=== PATIENT | female | born 1965 | race Caucasian/White ===

== ENCOUNTER 2020-11-02 13:54 | Outpatient (CLI) | payer BC, SELFPAY ==
--- NOTE | ~2020-11-02 | XR_ITS ---
EXAMINATION: XR chest 2V 11/02/2020 14:37 INDICATION: Dyspnea. Recent heart attack. PROCEDURE: 2 view chest COMPARISON: No prior studies for comparison. FINDINGS: There is left lower lobe atelectasis. The cardiomediastinal silhouette is enlarged. There a re no pleural effusions. There is no pneumothorax suspected. IMPRESSION: 1: Left lower lobe atelectasis. 2: Cardiomegaly. Reviewed, dictated and finalized at location B.
[2020-11-02 14:23] LABS: Basophils Absolute Auto 0.12 K/mm3 (0.00-0.10); Basophils Percent Auto 1.4 % (0.0-1.0); Eosinophils Absolute Auto 0.22 K/mm3 (0.02-0.50); Eosinophils Percent Auto 2.5 % (1.0-6.0); Hematocrit 27.3 % (35.0-49.0); Immature Granulocyte Absolute 0.23 K/mm3 (0.00-0.00); Immature Granulocyte Percent A 2.6 % (0.0-0.0); Lymphocytes Absolute Auto 1.61 K/mm3 (1.10-4.50); Lymphocytes Percent Auto 18.4 % (18.0-42.0); Mean Corpuscular Hemoglobin 29.1 pg (27.0-31.0); Mean Corpuscular Volume 88.3 fL (78.0-102.0); Mean Platelet Volume 9.5 fl (9.2-11.8); Monocytes Absolute Auto 0.78 K/mm3 (0.10-0.90); Monocytes Percent Auto 8.9 % (2.0-11.0); Neutrophils Absolute Auto 5.8 K/mm3 (1.7-7.2); Neutrophils Percent Auto 66.2 % (50.0-70.0); Platelet Count Result 356 K/mm3 (150-420); Red Blood Count 3.09 M/mm3 (4.20-5.40); Red Cell Distribution Width 13.7 % (11.6-14.4); White Blood Count 8.8 K/mm3 (4.8-10.8)
[2020-11-02 14:47] LABS: Alanine Aminotransferase 117 U/L (14-59); Albumin Level 2.9 g/dL (3.4-5.0); Alkaline Phosphatase 82 U/L (46-116); Anion Gap 15 mmol/L (8-16); Aspartate Amino Transferase 53 U/L (15-37); Bilirubin,Total 0.4 mg/dL (0.00-1.00); Blood Urea Nitrogen 39 mg/dL (7-18); Calcium 8.8 mg/dL (8.5-10.1); Carbon Dioxide 19 mmol/L (21-32); Chloride 105 mmol/L (98-108); Estimated Glomerular Filt Rate 34; Glucose 159 mg/dL (70-99); NT Pro B Type Natriuretic Pept 5725 pg/mL (0-125); Osmolality Calculated 300 mOsm/kg (285-295); Potassium 4.2 mmol/L (3.5-5.1); Sodium 139 mmol/L (136-145); Total Protein 6.9 g/dL (6.4-8.2)
== END 2020-11-02 13:55 | disposition home or self-care (01) ==
LOC: CHSIMG 14:01
PROVIDERS: PCP Internal Medicine; Visit Provider Internal Medicine
DX: I50.9 Heart failure, unspecified (principal); R06.00 Dyspnea, unspecified
CPT/HCPCS: 36415; 71046; 80053; 83880; 85025

== ENCOUNTER 2021-11-17 14:24 | Outpatient (CLI) | payer BC, SELFPAY ==
--- NOTE | ~2021-11-17 | MM_ITS ---
EXAMINATION: MM screening jenn BI w zachariah HISTORY: Screening TECHNIQUE: Craniocaudal and mediolateral oblique 3-D tomosynthesis images were obtained and synthetic 2-D images were generated. CAD analysis was submitted and interpreted. COMPARISON: Comparison to multiple prior studies sequentially, with oldest reviewed study dated 03/14. BREAST PARENCHYMAL COMPOSITION: The breasts are almost entirely fatty. FINDINGS: There is no evidence of suspicious mass, calcification, or architectural distortion to sugg est malignancy in either breast. There has been no suspicious interval change. IMPRESSION: 1. No mammographic evidence of malignancy. 2. Recommend routine screening mammography in one year. BI-RADS Category 1: Negative Reviewed, dictated and finalized at location A.
== END 2021-11-17 14:25 | disposition home or self-care (01) ==
LOC: CHSIMG 14:25
PROVIDERS: PCP Internal Medicine; Visit Provider Internal Medicine
DX: Z12.31 Encounter for screening mammogram for malignant neoplasm of breast (principal)
CPT/HCPCS: 77063; 77067

== ENCOUNTER 2023-05-31 07:26 | Outpatient (CLI) | payer OTHER, SELFPAY ==
--- NOTE | ~2023-05-31 | MM_ITS ---
EXAMINATION: MM screening jenn BI w zachariah HISTORY: Screening TECHNIQUE: Craniocaudal and mediolateral oblique 3-D tomosynthesis images were obtained and synthetic 2-D images were generated. CAD analysis was submitted and interpreted. COMPARISON: Comparison to multiple prior studies sequentially, with oldest reviewed study dated 03/14. BREAST PARENCHYMAL COMPOSITION: There are scattered areas of fibroglandular density. FINDINGS: There is no evidence of suspicious mass, calcification, or architectural distortion to sugg est malignancy in either breast. There has been no suspicious interval change. IMPRESSION: 1. No mammographic evidence of malignancy. 2. Recommend routine screening mammography in one year. BI-RADS Category 1: Negative Reviewed, dictated and finalized at location A. SCOPY REGISTERED NURSE
== END 2023-05-31 07:27 | disposition home or self-care (01) ==
LOC: CHSIMG 07:27
PROVIDERS: PCP Internal Medicine; Visit Provider Internal Medicine
DX: Z12.31 Encounter for screening mammogram for malignant neoplasm of breast (principal)
CPT/HCPCS: 77063; 77067

== ENCOUNTER 2024-07-20 07:24 | Outpatient (CLI) | payer OTHER, SELFPAY ==
--- NOTE | ~2024-07-20 | XR_ITS ---
XR hip RT min 2V Ordering provider: Hossein Hoffman MD History: . RT hip pain X 2-3 months, abducting pain . Comparison: None. FINDINGS: BONES: No acute fracture or dislocation. HIP JOINT SPACES: Severe osteoarthritic changes of the right hip. SACROILIAC JOINT SPACES/LUMBAR SPINE: The sacroiliac joint spaces are normal. Mild degenerative jiménez es of the visualized lower lumbar spine. PUBIC SYMPHYSIS: Normal. SOFT TISSUES: Calcified fibroid. IMPRESSION: No acute osseous abnormality pelvis and right hip. Severe osteoarthritic changes of the right hip. Reviewed, dictated and finalized at location A.
--- NOTE | ~2024-07-20 | MM_ITS ---
EXAMINATION: MM screening jenn BI w zachariah HISTORY: Screening mammogram TECHNIQUE: Craniocaudal and mediolateral oblique 3-D tomosynthesis images were obtained and synthetic 2-D images were generated. CAD analysis was submitted and interpreted. COMPARISON: 05/31/2023, 11/29/2021, 04/07/2019 BREAST PARENCHYMAL COMPOSITION:Not Dense. The breasts are almost entirely fatty FINDINGS: No suspicious mass, calcification, or architectural distortion are identified in either alem ast to suggest malignancy. There has been no suspicious interval change. IMPRESSION: No mammographic evidence of malignancy. Recommend routine screening mammography in one year. BI-RADS Category 1: Negative Reviewed, dictated and finalized at location .
--- NOTE | ~2024-07-20 | DEXA_ITS ---
Bone Density Report Name: LOUISE SHAFER Age: 59 Sex: Female Ethnicity: White Date of : 1965 Indication: postmenopausal; screening for osteoporosis; parental hip fracture; height loss; Referring Provider: Hossein Hoffman Study: Bone densitometry was performed. Exam Date: July 20, 2024 Accession number: [id number] Bone Density: Region BMD T-score Z-score Classification AP Spine(L1, L2, L3) 1.135 1.1 2.5 Normal Femoral Neck (Left) 0.902 0.5 1.8 Normal Total Hip (Left) 0.992 0.4 1.4 Normal Femoral Neck (Right) 0.786 -0.6 0.7 Normal Total Hip (Right) 0.919 -0.2 0.8 Normal Femoral Neck Mean 0.844 0.0 1.3 Normal Total Hip Mean 0.956 0.1 1.1 Normal World Health Organization criteria for BMD impression classify patients as: Normal (T-score at or above -1.0), Osteopenia (T-score between -1.0 and -2.5), or Osteoporosis (T-score at or below -2.5). 10-year Fracture Risk: FRAX not reported because: All T-scores for Spine Total, Hip Total, Femoral Neck at or above -1.0 Previous Exams: Region Exam Age BMD T-score BMD Change BMD Change Date g/cm2 vs Baseline vs Previous AP Spine (L1-L3) 07/20/2024 59 1.135 1.1 -0.108 (-8.7%) -0.108 (-8.7%) 04/07/2019 54 1.243 2.0 Total Hip(Left) 07/20/2024 59 0.992 0.4 -0.010 (-1.0%) -0.010 (-1.0%) 04/07/2019 54 1.002 0.5 Total Hip(Right) 07/20/2024 59 0.919 -0.2 -0.026 (-2.7%) -0.026 (-2.7%) 04/07/2019 54 0.945 0.0 *Denotes significance at 95% confidence level, LSC for AP Spine = 0.022 g/cm2, LSC for Total Hip = 0.027 g/cm2 # Denotes dissimilar scan types or analysis methods Clinical Information Provided by Patient: Parent has had a hip fracture Has used the following medications: multi Patient maximum height was 69.5 Menopause Age: 54 No regular weight bearing exercise Drinks caffeinated beverages Onset of menses at age 12 Number of children 0 Impression: The patient has normal bone mass. The patient has risk factors, including: parental hip fracture. No significant bone loss was observed. Discussion: BONE DENSITY IS ABOVE THE MINIMUM DESIRABLE LEVEL AT ALL SKELETAL SITES TESTED. This patient?s bone mineral density is above the minimum desirable level (T-score -1.0 or better) at all sites measured. The patient should follow a healthful lifestyle (good nutrition with adequate calcium and vitamin D, and appropriate weight-bearing exercise). Follow-Up: Consider repeating this study in 5 years or sooner if there is some new clinical indication. Reported by: CARLA on 07/20/2024 8:07:00 AM. Reviewed, dictated and finalized at location A.
--- OUTSIDE RECORDS SUMMARY | 2024-07-20 07:32 | XMS_ITS | Encounter Summary ---
Author Organization [facility] Address [facility] [place] [address] Care Team Providers Care Air Twister Winder Name Role Phone Hossein Hoffman MD Primary Care Provider [phone] Joselyn Frazier MD Unavailable Jack Navarro MD Unavailable [phone] Encounter Details Date Type Department Care Team (Late st Contact Info) Description 10/18/2021 Spayee Message [facility] [address] Joselyn Frazier MD [address] [place] [address] Dentist Social History Tobacco Use Types Packs/Day Years Used Date Smoking Tobacco: Former Cigarettes 0.5 20 1 985 - 2005 Smokeless Tobacco: Never Alcohol Use Standard Drinks/Week Comments Yes 0 (1 standard drink = 0.6 oz pur e alcohol) rarely Comments No Sex and Gender Information Value Date Recorded Sex Assigned at Not on file Legal Sex Female 9:31 PM AUTOMOBILE RADIO REPAIRER Gender Identity Female 05/24/2021 9:30 AM AUTOMOBILE RADIO REPAIRER Sexual Orientation Straight 05/24/2021 9: 30 AM AUTOMOBILE RADIO REPAIRER documented as of this encounter Functional Status * RETIRED Are you deaf or do you have serious difficulty hearing Answer Date of Assessment Author Status No 10/24/2020 1:53 AM CDT Activ e * RETIRED Are you blind or do you have serious difficulty seeing, even when wearing glasses? Answer Date of Assessment Author Status No 10/24/2020 1:53 AM CDT Activ e * Do you have serious difficulty walking or climbing stairs? Answer Date of Assessment Author Status No 10/24/2020 1:53 AM CDT Samara Lockwood RN Active * Do you have difficulty dressing or bathing? Answer Date of Assessment Author Status No 10/24/2020 1:53 AM CDT Samara Lockwood RN Active * Because of a physical, mental, or emotional condition, do you have difficulty doing errands alone such as visiting a doctor's office or shopping? Answer Date of Assessment Author Status No 10/24/2020 1:53 AM CDT Samara Lockwood RN Active documented as of this encounter Mental Status * Because of a physical, mental, or emotional condition, do you have serious difficulty concentrating, remembering, or making decisions? Answer Entry Date Author Status No 10/24/2020 1:53 AM ARMAANT Samara Lockwood RN Active documented in this encounter Plan of Treatment Upcoming Encounters Date Type Department Care Team (Late st Contact Info) Description 10/22/2024 1:15 AM CDT Allied Health/Nurse Visit Emelia johnson 6[address] [place] [address] Jack Navarro MD 9 [place] [address] 03/26/2025 8:00 AM AUTOMOBILE RADIO REPAIRER Appointment [facility] Non Invasive Cardiology - [place] [facility] [place] [address] [place] [address] Joselyn Frazier MD 619 [place] [address] 03/30/2025 9:15 AM AUTOMOBILE RADIO REPAIRER Office Visit Emelia johnson 619 [place] [address] Joselyn Frazier MD [address]19 [place] [address] 04/06/2025 2:00 PM AUTOMOBILE RADIO REPAIRER Office Visit Emelia johnson [address] [place] [address] Jack Navarro MD [address] [place], [place] [address] 04/06/2025 2:00 PM AUTOMOBILE RADIO REPAIRER Allied Health/Nurse Visit [facility] [address] [place] [phone] Jack Navarro MD 6[address] [place] [address] documented as of this encounter Visit Diagnoses Not on filedocumented in this encounter Care Teams Air Twister Winder Relationship Specialty Start Date End Date Hossein Hoffman MD 4 [place] [address] PCP - General INTERNAL MEDICINE 10/11/20 Joselyn Frazier MD 9 [place] [address] Consulting Physician CARDIOVASCULAR DISEASE 02/17/21 Jack Navarro MD [address] [place] [address] Consulting Physician CLINICAL CARDIAC ELECTROPHYSIOLOGY 11/21/22 documented as of this encounter
--- OUTSIDE RECORDS SUMMARY | 2024-07-20 07:32 | XMS_ITS | Encounter Summary ---
Author Organization [facility] Address [facility] [place] [address] Care Team Providers Care Ell Teacher Name Role Phone Hossein Hoffman MD Primary Care Provider [phone] Joselyn Frazier MD Unavailable Jack Navarro MD Unavailable [phone] Encounter Details Date Type Department Care Team ([facility] st Contact Info) Description 11/06/2021 CustomMade Message [facility] [address] Joselyn Frazier MD [address] [place] [address] colonoscopy Social History Tobacco Use Types Packs/Day Years Used Date Smoking Tobacco: Former Cigarettes 0.5 20 1 985 - 2005 Smokeless Tobacco: Never Alcohol Use Standard Drinks/Week Comments Yes 0 (1 standard drink = 0.6 oz pur e alcohol) rarely Comments No Sex and Gender Information Value Date Recorded Sex Assigned at Not on file Legal Sex Female 9:31 PM TANNER ROTARY DRUM CONTINUOUS PROCESS Gender Identity Female 05/24/2021 9:30 AM TANNER ROTARY DRUM CONTINUOUS PROCESS Sexual Orientation Straight 05/24/2021 9: 30 AM TANNER ROTARY DRUM CONTINUOUS PROCESS documented as of this encounter Functional Status [...] 1:15 AM CDT Allied Health/Nurse Visit [facility] [address] [place] [address] Jack Navarro MD 9 [place] [address] 03/26/2025 8:00 AM TANNER ROTARY DRUM CONTINUOUS PROCESS Appointment [facility] Non Invasive Cardiology - [place] [facility] [place] [address] [place] [address] Joselyn Frazier MD [address] [place] [address] 03/30/2025 9:15 AM TANNER ROTARY DRUM CONTINUOUS PROCESS Office Visit [facility] [address] [place] [address] Joselyn Frazier MD [address] [place] [address] 04/06/2025 2:00 PM TANNER ROTARY DRUM CONTINUOUS PROCESS Office Visit [facility] [address] [place] [address] Jack Navarro MD [address] [place], [place] [address] 04/06/2025 2:00 PM TANNER ROTARY DRUM CONTINUOUS PROCESS Allied Health/Nurse [facility] 6[address] [place] [address] Jack Navarro MD [address] [place] [address] documented as of this encounter Visit Diagnoses Not on filedocumented in this encounter Care Teams Ell Teacher Relationship Specialty Start Date End Date Hossein Hoffman MD 4 [place] [address] PCP - General INTERNAL MEDICINE 10/11/20 Joselyn Frazier MD 9 [place] [address] Consulting Physician CARDIOVASCULAR DISEASE 02/17/21 Jack Navarro MD [address] [place] [address] Consulting Physician CLINICAL CARDIAC ELECTROPHYSIOLOGY 11/21/22 documented as of this encounter
--- OUTSIDE RECORDS SUMMARY | 2024-07-20 07:32 | XMS_ITS | Encounter Summary ---
Author Organization [facility] Address [address] [place] [address] Care Team Providers Care Tube Repairer Name Role Phone Hossein Hoffman MD Primary Care Provider [phone] Joselyn Frazier MD Unavailable Jack Navarro MD Unavailable [phone] Encounter Details Date Type Department Care Team (Latest Contact Info) Description 11/18/2022 [employer] Message [facility] [address] Cary Treadwell NP Defibrillator implant Social History Tobacco Use Types Packs/Day Years Used Date Smoking Tobacco: Former Cigarettes 0.5 20 1 985 - 2005 Smokeless Tobacco: Never Alcohol Use Standard Drinks/Week Comments Yes 0 (1 standard drink = 0.6 oz pur e alcohol) rarely Comments No Sex and Gender Information Value Date Recorded Sex Assigned at Not on file Legal Sex Female 9:31 PM REHANGER Gender Identity Female 05/24/2021 9:30 AM REHANGER Sexual Orientation Straight 05/24/2021 9: 30 AM REHANGER documented as of this encounter Functional Status [...] Assessment Author Status No 10/24/2020 1:53 AM ARMAANT Samara Lockwood RN Active documented as of [...] 10/22/2024 1:15 AM CDT Allied Health/Nurse Visit [place] [facility] [address] [place] [phone] Jack Navarro MD 619 [place] [address] 03/26/2025 8:00 AM REHANGER Appointment [facility] Non Invasive Cardiology - [place] [facility] [place] [address] [place] [address] Joselyn Frazier MD 619 [place] [address] 03/30/2025 9:15 AM REHANGER [facility] [place] [facility] [address] [place] [address] Joselyn Frazier MD 619 [place] [address] 04/06/2025 2:00 PM REHANGER Office Visit [place] [facility] [address] [place] [address] Jack Navarro MD 619 [place] [address] 04/06/2025 2:00 PM REHANGER Allied Health/Nurse Visit [facility] 6[address] [place] [phone] Jack Navarro MD 619 [place], [place] [address] documented as of this encounter Visit Diagnoses Not on filedocumented in this encounter Care Teams Tube Repairer Relationship Specialty Start Date End Date Hossein Hoffman MD 4 [place] [phone] PCP - General INTERNAL MEDICINE 10/11/20 Joselyn Frazier MD 9 [place] [address] Consulting Physician CARDIOVASCULAR DISEASE 02/17/21 Jack Navarro MD [address] [place] [address] Consulting Physician CLINICAL CARDIAC ELECTROPHYSIOLOGY 11/21/22 documented as of this encounter
--- OUTSIDE RECORDS SUMMARY | 2024-07-20 07:32 | XMS_ITS | Encounter Summary ---
Author Organization [facility] Address [address] [place] [address] Care Team Providers Care Attending Physician Name Role Phone Hossein Hoffman MD Primary Care Provider [phone] Joselyn Frazier MD Unavailable Jack Navarro MD Unavailable [phone] Encounter Details Date Type Department Care Team (Latest Contact Info) Description 11/06/2022 [employer] Message [facility] [address] Cary Treadwell NP November 12 appointment Social History Tobacco Use Types Packs/Day Years Used Date Smoking Tobacco: Former Cigarettes 0.5 20 1 985 - 2005 Smokeless Tobacco: Never Alcohol Use Standard Drinks/Week Comments Yes 0 (1 standard drink = 0.6 oz pur e alcohol) rarely Comments No Sex and Gender Information Value Date Recorded Sex Assigned at Not on file Legal Sex Female 9:31 PM CYTOTECHNOLOGIST SUPERVISOR Gender Identity Female 05/24/2021 9:30 AM CYTOTECHNOLOGIST SUPERVISOR Sexual Orientation Straight 05/24/2021 9: 30 AM CYTOTECHNOLOGIST SUPERVISOR documented as of this encounter Functional Status [...] 10/22/2024 1:15 AM CDT Allied Health/Nurse Visit [facility] [address] [place] [address] Jack Navarro MD 6[address] [place] [address] 03/26/2025 8:00 AM CYTOTECHNOLOGIST SUPERVISOR Appointment [facility] Non Invasive Cardiology - [facility] [address] [place] [address] Joselyn Frazier MD 619 [place] [address] 03/30/2025 9:15 AM CYTOTECHNOLOGIST SUPERVISOR [facility] [address] [place] [address] Joselyn Frazier MD [address] [place] [address] 04/06/2025 2:00 PM CYTOTECHNOLOGIST SUPERVISOR Office Visit [facility] [address] [place] [address] Jack Navarro MD [address] [place] [address] 04/06/2025 2:00 PM CYTOTECHNOLOGIST SUPERVISOR Allied Health/Nurse Visit [facility] 6[address] [place] [address] Jack Navarro MD 6[address] [place], [place] [address] documented as of this encounter Visit Diagnoses Not on filedocumented in this encounter Care Teams Attending Physician Relationship Specialty Start Date End Date Hossein Hoffman MD 4 [place] [phone] PCP - General INTERNAL MEDICINE 10/11/20 Joselyn Frazier MD 9 [place] [address] Consulting Physician CARDIOVASCULAR DISEASE 02/17/21 Jack Navarro MD [address] [place] [address] Consulting Physician CLINICAL CARDIAC ELECTROPHYSIOLOGY 11/21/22 documented as of this encounter
--- OUTSIDE RECORDS SUMMARY | 2024-07-20 07:32 | XMS_ITS | Encounter Summary ---
Author Organization [facility] Address [facility] [place] [address] Care Team Providers Care Veneer Sample Maker Name Role Phone Hossein Hoffman MD Primary Care Provider [phone] Joselyn Frazier MD Unavailable Jack Navarro MD Unavailable [phone] Encounter Details Date Type Department Care Team (Latest Contact Info) Description 12/19/2021 TwoF Message [facility] Out[facility] [address] Joselyn Frazeir MD 6[address] [place] [address] Blood Work results Social History Tobacco Use Types Packs/Day Years Used Date Smoking Tobacco: Former Cigarettes 0.5 20 1 985 - 2005 Smokeless Tobacco: Never Alcohol Use Standard Drinks/Week Comments Yes 0 (1 standard drink = 0.6 oz pur e alcohol) rarely Comments No Sex and Gender Information Value Date Recorded Sex Assigned at Not on file Legal Sex Female 9:31 PM SCALEMAN Gender Identity Female 05/24/2021 9:30 AM SCALEMAN Sexual Orientation Straight 05/24/2021 9: 30 AM SCALEMAN documented as of this encounter Functional Status [...] CDT Allied Health/Nurse Visit Emelia johnson 6[address] [place] [address] Jack Navarro MD 9 [place] [address] 03/26/2025 8:00 AM SCALEMAN Appointment [facility] Non Invasive Cardiology - [place] [facility] [place] [address] [place] [address] Joselyn Frazier MD 6[address] [place] [address] 03/30/2025 9:15 AM SCALEMAN Office Visit Emelia johnson [address] [place] [address] Joselyn Frazier MD 6[address] [place] [address] 04/06/2025 2:00 PM SCALEMAN Office Visit Emelia johnson [address] [place] [address] Jack Navarro MD [address] [place], [place] [address] 04/06/2025 2:00 PM SCALEMAN Allied Health/Nurse Visit [facility] [address] [place] [address] Jack Navarro MD [address] [place] [address] documented as of this encounter Visit Diagnoses Not on filedocumented in this encounter Care Teams Veneer Sample Maker Relationship Specialty Start Date End Date Hossein Hoffman MD 4 [place] [address] PCP - General INTERNAL MEDICINE 10/11/20 Joselyn Frazier MD 9 [place] [address] Consulting Physician CARDIOVASCULAR DISEASE 02/17/21 Jack Navarro MD [address] [place] [address] Consulting Physician CLINICAL CARDIAC ELECTROPHYSIOLOGY 11/21/22 documented as of this encounter
--- OUTSIDE RECORDS SUMMARY | 2024-07-20 07:32 | XMS_ITS | Encounter Summary ---
Author Organization [facility] Address [address] [place] [address] Care Team Providers Care Education Administrative Assistant Name Role Phone Hossein Hoffman MD Primary Care Provider [phone] Joselyn Frazier MD Unavailable Jack Navarro MD Unavailable [phone] Encounter Details Date Type Department Care Team (Late st Contact Info) Description 11/22/2020 [facility] [address] [place] [address] Maxx Patel MD [address] [place] [address] Social History Tobacco Use Types Packs/Day Years Used Date Smoking Tobacco: Former Cigarettes 0.5 20 1 985 - 2005 Smokeless Tobacco: Never Alcohol Use Standard Drinks/Week Comments Yes 0 (1 standard drink = 0.6 oz pur e alcohol) rarely Comments No Sex and Gender Information Value Date Recorded Sex Assigned at Not on file Legal Sex Female 9:31 PM LATIN AMERICAN STUDIES DIRECTOR Gender Identity Female 05/24/2021 9:30 AM LATIN AMERICAN STUDIES DIRECTOR Sexual Orientation Straight 05/24/2021 9: 30 AM LATIN AMERICAN STUDIES DIRECTOR COVID-19 Exposure Response Date Recorded In the last month, have you been in contact with someone who was confirmed or suspected to have Coronavirus / COVID-19? No / Unsure 11/25/2020 9:18 AM CDT documented as of this encounter Functional Status [...] 1:53 AM ARMAANT Samara Lockwood RN Active * Do you [...] Date Author Status No 10/24/2020 1:53 AM CDT Samara Lockwood RN Active documented in this encounter Plan of Treatment Upcoming Encounters Date Type Department Care Team (Late st Contact Info) Description 10/22/2024 1:15 AM CDT Allied Health[facility] [address] [place] [address] Jack Navarro MD [address] [place] [address] 03/26/2025 8:00 AM LATIN AMERICAN STUDIES DIRECTOR Appointment [facility] Non Invasive Cardiology - [facility] [place] [address] [place] [address] Joselyn Frazier MD 9 [place] [address] 03/30/2025 9:15 AM LATIN AMERICAN STUDIES DIRECTOR [facility] [address] [place] [address] Joselyn Frazier MD 619 [place] [address] 04/06/2025 2:00 PM LATIN AMERICAN STUDIES DIRECTOR Office Visit [facility] 619 [place] [address] Jack Navarro MD 619 [place], [place] [address] 04/06/2025 2:00 PM LATIN AMERICAN STUDIES DIRECTOR Allied Health/Nurse Visit [facility] 6[address] [place] [address] Jack Navarro MD [address]19 [place], [place] [address] documented as of this encounter Procedures Procedure Name Priority Date/Time Associated Diagnosis Comments CBC (OUTSIDE LAB) Routine 11/09/2020 HEMOGLOBIN, GLYCOSYLATED Routine 11/09/2020 LIPID PANEL Routine 11/09/2020 HEPATIC FUNCTION PANEL Routine 11/09/2020 documented in this encounter Results * HEPATIC FUNCTION PANEL (11/09/2020) Pathologist [facility] ALBUMIN S/P/B 3.9 3.5 - 5.0 ALKALINE PHOSPHATASE S/P/B 88 ALT 41 AST 24 BILIRUBIN TOTAL S/P/B 0.6 TOTAL PROTEIN S/P/B 7.0 11/09/2020 Hossein Hoffman MD LABORATORY Final Result * CBC (OUTSIDE LAB) (11/09/2020) Pathologist [facility] WBC 8.8 HGB 10.7 HCT 32.2 PLT 466 RBC 3.70 MCV 10.3 MCH 28.9 MCHC 33.2 MPV 10.3 11/09/2020 Hossein Hoffman MD LAB-OUTSIDE/ABSTRACTED Final Result * LIPID PANEL (11/09/2020) CHOLESTEROL 191 HDL 40 TRIGLYCERIDES 110 NON HDL CHOLESTEROL 151 CHOL/HDL RATIO 4.8 LDL (CALCULATED) 129 11/09/2020 Hossein Hoffman MD LABORATORY Final Result * HEMOGLOBIN, GLYCOSYLATED (11/09/2020) HGB A1C 6.6 % 11/09/2020 us Doc [facility] Abstract LABORATORY Final Result documented in this encounter Visit Diagnoses Not on filedocumented in this encounter Care Teams Education Administrative Assistant Relationship Specialty Start Date End Date Hossein Hoffman MD [address] [place] [phone] PCP - General INTERNAL MEDICINE 10/11/20 Joselyn Frazier MD 9 [place] [address] Consulting Physician CARDIOVASCULAR DISEASE 02/17/21 Jack Navarro MD [address] [place] [address] Consulting Physician CLINICAL CARDIAC ELECTROPHYSIOLOGY 11/21/22 documented as of this encounter
--- OUTSIDE RECORDS SUMMARY | 2024-07-20 07:33 | XMS_ITS | Clinical Summary ---
Author Organization [facility] Address [address] [place] [id number] Care Team Providers Care Commutator V Ring Assembler Name Role Phone Hossein Hoffman MD Primary Care Provider + [phone] Allergies No known active allergies Medications bisoprolol (ZEBETA) 10 mg tablet Take 1 tablet (10 mg total) by mouth 2 (two) times a day 02/01/20 20 Active Brilinta 90 mg tablet Take 1 tablet (90 mg total) by mouth 2 (two) times a day 01/21/20 21 Active Entresto 24-26 mg tablet Take 1 tablet by mouth 2 (two) times a day 01/11/20 21 Active furosemide (LASIX) 20 mg tablet Take 1 tablet (20 mg total) by mouth daily 12/14/19 21 Active insulin glargine (LANTUS) 100 unit/mL (3 mL) pen for injection Inject 24 Units under the skin daily 30 mL 1 05/18/19 22 Active Additional Information Patient taking differently: 4 Unitssubcutaneous Daily, Reported on 10/11/2022 aspirin 81 MG oral suspension Active atorvastatin (LIPITOR) 20 mg tablet 05/22/19 22 Active nitroglycerin (NITROSTAT) 0.4 mg SL tablet Active TRUEplus Pen Needle 31 gauge x 3/16 needle Use twice daily to give injections DX E11.65, Z79.4 200 each 3 08/29/19 22 Active True Metrix Glucose Test Strip strip USE TO TEST 3 TIMES DAILY 300 each 3 03/12/20 22 Active semaglutide (Ozempic) 1 mg/dose (2 mg/1.5 mL) pen injector injection INJECT 1 MG UNDER THE SKIN EVERY 7 DAYS 9 mL 1 03/12/20 23 Active Active Problems Problem Noted Date Diagnosed Date Change in bowel habits 10/11/2021 Overview (10/11/2021): Added automatically from request for surgery [id number] Family history of colon cancer in father 022 Overview (10/11/2021): Added automatically from request for surgery [id number] Encounter for screening colonoscopy 10/11/2021 Overview (10/11/2021): Added automatically from request for surgery [id number] Type 2 diabetes mellitus wit h hyperglycemia, with long-term current use of insulin 12/09/2018 Assessment & Plan (10/11/2022 4:22 PM CDT): Diagnosed around 2007 Started insulin in February 2018 Has been off Metformin since November/2019 due to low GFR had diarrhea on Metformin. Control : still in good control on less insulin A1c 5.5% on 10/11/22 A1c 5.6% on 06/12/22 A1c 5.6% on 01/29/22 A1c 5.8% on 09/25/21 A1c 5.9% on 06/07/21 Kidney:GFR 39 on 12/01/21 Neuropathy : mild. Plan: Continue diet plan, and weight loss. continue Ozempic 1 mg /week Can stop insulin. Monitor sugars 1 x per day and bring records. Assessment & Plan (06/12/2022 4:28 PM PAINTINGS RESTORER): Diagnosed around 2007 Started insulin in February 2018 Has been off Metformin since November/2019 due to low GFR had diarrhea on Metformin. Control : still in good control on less insulin A1c 5.6% on 06/12/22 A1c 5.6% on 01/29/22 A1c 5.8% on 09/25/21 A1c 5.9% on 06/07/21 A1c 5.5% on 02/07/21 A1c 6.6% on 09/15/20 Kidney:GFR 39 on 12/01/21 Neuropathy : mild. Plan: Continue diet plan, and weight loss. Increase Ozempic to 1 mg /week Decrease Lantus insulin 4 u once /day. Can stop insulin if having low sugars. Monitor sugars 3 x per day and bring records. Hypoglycemia symptoms and treatment reviewed with patient. Call if having low sugars. Patient to see a relay operator. Assessment & Plan (01/29/2022 3:51 PM CDT): Diagnosed around 2007 Started insulin in February 2018 Has been off Metformin since November/2019 due to low GFR had diarrhea on Metformin. Control : still in good control and taking less insulin- no hypoglycemia A1c 5.6% on 01/29/22 A1c 5.8% on 09/25/21 A1c 5.9% on 06/07/21 A1c 5.5% on 02/07/21 A1c 6.6% on 09/15/20 Kidney:GFR 43 on 06/07/21 Neuropathy : mild. Plan: Continue diet plan, and weight loss. Continue Lantus insulin 8 u once /day. Continue Ozempic. Monitor sugars 3 x per day and bring records. Hypoglycemia symptoms and treatment reviewed with patient. Call if having low sugars. Patient to see a relay operator. Assessment & Plan (09/25/2021 2:56 PM CDT): Diagnosed around 2007 Started insulin in February 2018 Has been off Metformin since November/2019 due to low GFR had diarrhea on Metformin. Control : still in good control after weight loss- no hypoglycemia A1c 5.8% on 09/25/21 A1c 5.9% on 06/07/21 A1c 5.5% on 02/07/21 A1c 6.6% on 09/15/20 Kidney:GFR 43 on 06/07/21 Neuropathy : mild. Plan: Continue diet plan, and weight loss. Decrease Lantus insulin 8 u once /day. Continue Ozempic. Monitor sugars 3 x per day and bring records. Hypoglycemia symptoms and treatment reviewed with patient. Call if having low sugars. Patient to see a relay operator. Assessment & Plan (06/12/2021 4:40 PM PAINTINGS RESTORER): Diagnosed around 2007 Started insulin in February 2018 Has been off Metformin since November/2019 due to low GFR had diarrhea on Metformin. Control : in tight control after weight loss A1c 5.9% on 06/07/21 A1c 5.5% on 02/07/21 A1c 6.6% on 09/15/20 Kidney:GFR 43 on 06/07/21 Neuropathy : mild. Plan: Continue diet plan, and weight loss. Decrease Lantus insulin 10 u once /day. Continue Ozempic. Monitor sugars 3 x per day and bring records. Target am sugars 80-130. Hypoglycemia symptoms and treatment reviewed with patient. Call if having low sugars. Patient to see a relay operator. Assessment & Plan (02/07/2021 5:04 PM CDT): Diagnosed around 2007 Started insulin in February 2018 Has been off Metformin since November/2019 due to low GFR Control : in tight control after weight loss A1c 5.5% on 02/07/21 A1c 6.6% on 09/15/20 A1c 6.3% on 05/17/20. A1c 6.0% on 02/01/2020 Kidney:GFR 48 on 01/20/2020 Neuropathy : mild. Plan: Continue diet plan, and weight loss. Decrease Lantus insulin 16 u once /day. Continue Ozempic. Monitor sugars 3 x per day and bring records. Target am sugars 80-130. Hypoglycemia symptoms and treatment reviewed with patient. Call if having low sugars. Ophthalmology exam on regular basis. Assessment & Plan (09/15/2020 3:52 PM CDT): Diagnosed around 2007 Started insulin in February 2018 Has been off Metformin since November/2019 due to low GFR Control : in good control . A1c 6.6% on 09/15/20 A1c 6.3% on 05/17/20. A1c 6.0% on 02/01/2020 A1c 6.6% on 10/26/2019 A1c 6.1% on 06/16/2019. Kidney:GFR 48 on 01/20/2020 Neuropathy : mild. Plan: Continue diet plan, and work on weight loss. I recommended low carb diet Increase exercise - 20 to 30 min of daily walking. increase Victoza 1.8 mg /day Can decrease Lantus insulin 22 u once /day. Monitor sugars 3 x per day and bring records. Target am sugars 80-130. Hypoglycemia symptoms and treatment reviewed with patient. Call if having low sugars. Ophthalmology exam on regular basis. Assessment & Plan (05/17/2020 4:26 PM PAINTINGS RESTORER): Diagnosed around 2007 Started insulin in February 2018 Has been off Metformin since November/2019 due to low GFR Control : in good control . A1c 6.3% on 05/17/20. A1c 6.0% on 02/01/2020 A1c 6.6% on 10/26/2019 A1c 6.1% on 06/16/2019. A1c 5.7% on 03/12/19 A1c 6.9% on 12/09/18. A1c 7.3% on 08/21/18 Kidney:GFR 48 on 01/20/2020 Neuropathy : mild. Plan: Continue diet plan, and work on weight loss. I recommended low carb diet Increase exercise - 20 to 30 min of daily walking. Continue same dose of Victoza. Can decrease Lantus insulin 22 u once /day, if she starts to have am sugars below 90. Monitor sugars 3 x per day and bring records. Target am sugars 80-130. Hypoglycemia symptoms and treatment reviewed with patient. Call if having low sugars. Ophthalmology exam on regular basis. Assessment & Plan (02/01/2020 4:58 PM CDT): Diagnosed around 2007 Started insulin in February 2018 Has been off Metformin since November/2019 due to low GFR Control : still in good control . A1c 6.0% on 02/01/2020 A1c 6.6% on 10/26/2019 A1c 6.1% on 06/16/2019. A1c 5.7% on 03/12/19 A1c 6.9% on 12/09/18. A1c 7.3% on 08/21/18 Kidney:GFR 48 on 01/20/2020 Neuropathy : mild. Eye : seeing hardwood floor installation helper. Plan: Continue diet plan, and work on weight loss. I recommended low carb diet Increase exercise - 20 to 30 min of daily walking. Continue same dose of Victoza. Continue BAsaglar insulin 26 u once /day Monitor sugars 3 x per day and bring records. Target am sugars 80-130. Hypoglycemia symptoms and treatment reviewed with patient. Call if having low sugars. Ophthalmology exam on regular basis. Assessment & Plan (10/26/2019 4:59 PM CDT): Diagnosed around 2007 Started insulin in February 2018 Did not tolerate high dose metformin. Control : still in good control . A1c 6.6% on 10/26/2019 A1c 6.1% on 06/16/2019. A1c 5.7% on 03/12/19 A1c 6.9% on 12/09/18. A1c 7.3% on 08/21/18 Kidney:GFR 54 on 07/02/19 Neuropathy : mild. Eye : seeing hardwood floor installation helper. Plan: Continue diet plan, and work on weight loss. I recommended low carb diet Increase exercise - 20 to 30 min of daily walking. Continue same dose of Victoza. Continue on Metformin ER 500 mg bid Continue BAsaglar insulin 26 u once /day Monitor sugars 3 x per day and bring records. Target am sugars 80-130. Hypoglycemia symptoms and treatment reviewed with patient. Call if having low sugars. Ophthalmology exam on regular basis. Right lower lobe pneumonia 07/16/2018 Assessment & Plan (07/16/2018 4:04 AM PAINTINGS RESTORER): Patient with right lower lobe infiltrates. Presents with cough and diminished breath sounds on physical exam. Currently on Rocephin for UTI. Will add azithromycin for atypical bacterial coverage. Monitor CBC and BMP. Septic workup in progress. Will follow up with urine and blood cultures. Acute cystitis with hematuria 07/16/2018 Assessment & Plan (07/16/2018 9:52 PM PAINTINGS RESTORER): Septic workup is in progress. Will follow up with blood culture and urine culture results. Will start on IV Rocephin Monitor CBC Monitor kidney function with daily BMP, replete electrolytes as needed. RYDER improving, cont to monitor Essential hypertension 07/16/2018 Assessment & Plan (10/11/2022 4:22 PM CDT): Controlled- complicated with CKD - low salt diet - continue follow up with PCP Assessment & Plan (06/12/2022 4:28 PM PAINTINGS RESTORER): Controlled- complicated with CKD - low salt diet - continue follow up with PCP Assessment & Plan (01/29/2022 3:52 PM CDT): Controlled- complicated with CKD - low salt diet - continue follow up with PCP Assessment & Plan (09/25/2021 2:57 PM CDT): Controlled- complicated with CKD - low salt diet - continue follow up with PCP Assessment & Plan (06/12/2021 4:41 PM PAINTINGS RESTORER): Controlled- complicated with CKD - low salt diet - continue follow up with PCP Assessment & Plan (05/17/2020 4:24 PM PAINTINGS RESTORER): Controlled- complicated with CKD - low salt diet - check BMP with PCP on regular basis Assessment & Plan (02/01/2020 4:59 PM CDT): Under control Medication being adjusted by PCP due to pre-renal azotemia She is off diuretic - continue plan per PCP Assessment & Plan (10/26/2019 5:00 PM CDT): Under control with medication - continue same plan. Assessment & Plan (07/16/2018 4:00 AM PAINTINGS RESTORER): Stable. Will continue on lisinopril and metoprolol. Class 3 severe obesity due t o excess calories with serious comorbidity and body mass index (BMI) of 40.0 to 44.9 in adult 07/16/2018 Assessment & Plan (09/15/2020 4:00 PM CDT): Increased weight with decrease physical activity and stress eating - increase Victoza - discussed healthy eating and ways to handle stress other than food. Assessment & Plan (07/16/2018 4:06 AM PAINTINGS RESTORER): Weight loss discussed and encouraged. Will request consult for dietary and special education paraeducator Acute kidney injury 07/16/2018 Assessment & Plan (07/16/2018 5:58 AM PAINTINGS RESTORER): Multifactorial due to dehydration secondary to hyperglycemic hyperosmolar state and concurrent UTI Continue with IV fluid Monitor kidney function with serial BMP Replete electrolytes as needed. Bleeding from the nose 07/16/2018 Assessment & Plan (07/16/2018 9:51 PM PAINTINGS RESTORER): Developed today, controlled with pressure. Lovenox stopped Hypokalemia 07/16/2018 Assessment & Plan (07/16/2018 9:52 PM PAINTINGS RESTORER): Replete Hypophosphatemia 07/16/2018 Assessment & Plan (07/16/2018 9:53 PM PAINTINGS RESTORER): Replete Resolved Problems Problem Noted Date Diagnosed Date Resolved Date Hyperosmolar non-ketotic sta te in patient with type 2 diabetes mellitus 07/16/2018 10/26/2019 Assessment & Plan (07/17/2018 5:43 PM PAINTINGS RESTORER): ABGs consistent with respiratory alkalosis. Will continue on insulin drip. Repeat BMP every 4 hours. Replete electrolytes as needed Will stop insulin drip when anion gap is closed. Continue IV fluids with normal saline, switch to D5 half-normal saline when blood sugars less than 250 Will start on subcutaneous Lantus 20 units and SSI when on my gap is closed. Will get special education paraeducator and nutritional consult Changed to Lantus and SS coverage, started on clear diet Transferred to floor stable 07/18 Diabetic ketoacidosis withou t coma associated with diabetes mellitus due to underlying condition 08/21/2018 Surgical History Surgery Date Site/Laterality Comments CARDIAC CATHETERIZATION CHOLECYSTECTOMY COLONOSCOPY 12/21/2021 Medical History Medical History Date Comments Diabetes mellitus (HCC) Hypertension Myocardial infarction (HCC) Coronary artery disease Type 2 diabetes mellitus (HCC) Family History Medical History Relation Name Comments Cancer Father Colon cancer Father Colon cancer Father's Sister 1 Colon cancer Father's Sister 2 Diabetes Mother Early Mother Heart attack Mother Heart disease Mother Allergy (severe) Sister Early Sister Relation Name Status Comments Father Father's Sister 1 Father's Sister 2 Alive Mother Sister Social History Tobacco Use Types Packs/Day Years Used Date Smoking Tobacco: Former Cigarettes Q uit: 07/15/2008 Smokeless Tobacco: Never Tobacco Cessation:Counseling Given: Not Answered Alcohol Use Standard Drinks/Week Comments Never 0 (1 standard drink = 0.6 oz pur e alcohol) AUDIT-C Answer Date Recorded Frequency of Alcohol Consumption Never 07/15/2018 Average Number of Drinks Not on file 019 Frequency of Binge Drinking Not on file 09/2018 PHQ-2 Answer Date Recorded PHQ-2 Score 0 01/03/2019 Personal Safety Answer Date Recorded Getting School Help Needed Not on file 04/27 Comments Unknown Sex and Gender Information Value Date Recorded Sex Assigned at Not on file Legal Sex Female 2:43 PM PAINTINGS RESTORER Gender Identity Female 01/31/2021 6:43 AM CDT Sexual Orientation Straight 01/31/2021 6: 43 AM CDT Obstetrics History Last Filed Vital Signs Vital Sign Reading Time Taken Comments Blood Pressure 118/64 10/11/2022 4:09 PM CDT Pulse 61 12/21/2021 11:28 AM CDT Temperature 36.7 C (98 F) 12/21/2021 11:28 AM CDT Respiratory Rate 20 12/21/2021 11:2 8 AM CDT Oxygen Saturation 100% 12/21/2021 11: 28 AM CDT Inhaled Oxygen Concentration - - Weight 119.4 kg (263 lb 3.2 oz) 10/11/2022 4:09 PM CDT Height 175.3 cm (5' 9 ) 10/11/2022 4:09 PM CDT Body Mass Index 38.87 10/11/2022 4:09 PM CDT Plan of Treatment Health Maintenance Due Date Last Done Comments Breast Cancer Screening-Mammogram 1965 Cervical Cancer Screening 1965 Hepatitis C Screening 1965 Hepatitis B Screening 02/13/1982 Regular Well Visit/Exam 18-64 02/13/1982 DTaP/Tdap/Td Vaccine (7 - Tdap) 10/16/2004 10/16/1994, 12/25/1977, 05/13/1968, Additional history exists Pneumococcal vaccine <65 (2 of 2 - PPSV23) 04/22/2019 02/25/2019 Zoster Vaccine (2 of 2) 04/22/2019 02/25/2019 Depression Screening 07/16/2019 07/15/2018 Albumin Creatinine Ratio, Urine 11/18/2022 , 07/02/2019 Lipid Panel 11/18/2022 11/18/2021, 12/12, 11/09/2020, Additional history exists eGFR 11/18/2022 11/18/2021, 05/14, 01/03/2021, Additional history exists Hemoglobin A1C 04/12/2023 10/11/2022, 05/15, 01/29/2022, Additional history exists Dilated Eye Exam 09/15/2023 09/14/2022, , 11/25/2018, Additional history exists Foot Exam 10/12/2023 10/11/2022, 05/15, 01/29/2022, Additional history exists Colon Cancer Screening-Colonoscopy 12/22/2031 12/21/2021 Colon Cancer Screening-CT Colonography Discontinued 12/21/2021 Colon Cancer Screening-DNA Stool Discontinued 12/22/19 Colon Cancer Screening-FIT Discontinued 12/21/2021 Colon Cancer Screening-Sigmoidoscopy Discontinued 12/21/2021 Influenza Vaccine Completed 02/26/2024 Procedures Procedure Name Priority Date/Time Associated Diagnosis Comments POCT HEMOGLOBIN A1C Routine 10/11/2022 4 :22 PM CDT Type 2 diabetes mellitus with hyperglycemia, with long-term current use of insulin (HCC) DIABETIC EYE EXAM Routine 09/14/2022 COLONOSCOPY 12/21/2021 8:56 AM CDT COMPREHENSIVE METABOLIC PANEL Routine 11/18/2021 LIPID PANEL Routine 11/18/2021 ALBUMIN CREATININE RATIO, URINE Routine 11/18/2021 DIABETIC FOOT EXAM Routine 06/28/2021 from Last 3 Months or Most Recently Relevant to Health Maintenance Results * POCT hemoglobin A1c (10/11/2022 4:22 PM CDT) Hemoglobin A1C, POC 5.5 % Blood 10/11/2022 4:22 PM CDT Kiko Snyder MD POINT OF CARE TEST ORDERABLES Final Result * (ABNORMAL) Diabetic Eye Exam (09/14/2022) Sonia Provider HEALTH MAINTENANCE Final Result * COLONOSCOPY (12/21/2021 8:56 AM CDT) Anatomical Region Laterality Modality Other Narrative Procedure Note Remington Wagner MD - 12/21/2021 8:[address] [facility] Patient Name: Aristides Sauceda Procedure Date: 12/21/2021 8:56 AM Date of : 1965 Admit Type: Outpatient Age: 56 Gender: Female Attending MD: Remington Wagner M.D. Room: [facility] ENDOSCOPY ROOM 2 Note Status: Finalized Patient Profile: Refer to note in patient chart for documentation of history and physical. Procedure: Colonoscopy Indications: Screening for colorectal malignant neoplasm,Screening in patient at increased risk: Family history of 1st-degree relative with colorectal cancer, This is the patient's first colonoscopy Referring MD: Hossein Hoffman MD Providers: Remington Wagner M.D. Impression: - Hemorrhoids found on perianal exam. - Diverticulosis in the sigmoid colon. - The examination was otherwise normal. - No specimens collected. Recommendation: - Discharge patient to home. - Resume previous diet. - Continue present medications. - Repeat colonoscopy in 5 years for surveillance. - Return to primary care physician as previously scheduled. Medicines: Propofol per Anesthesia Complications: No immediate complications. Estimated Blood Loss: Estimated blood loss: none. Procedure: Pre-Anesthesia Assessment: - This assessment was completed [Time ofAssessment] prior to the administration of sedation. The benefits, risks and alternatives of theprocedure and sedation were discussed and informed consentwas obtained. All questions were answered. Please referto the signed informed consent document in the medical record. The bowel preparation used was Miralax via single dose instruction. The bowel preparation used was bisacodyl tablets [Single vs Split Dose]. The scope was passed under direct vision. TheColonoscope [id number] was introduced through the and advanced to the. The scope was passed under direct vision. The Pediatric Colonoscope [id number] was introduced through the anus and advanced to the the cecum, identified by appendiceal orifice and ileocecal valve. The colonoscopy was performedwithout difficulty. The patient tolerated the procedurewell. The quality of the bowel preparation was adequateto identify polyps. The ileocecal valve, appendiceal orifice, and rectum were photographed. Findings: Hemorrhoids were found on perianal exam. Multiple small and large-mouthed diverticula were found in thesigmoid colon. The exam was otherwise without abnormality. Electronically signed by Remington Wagner M.D. Remington Wagner M.D. 12/21/2021 11:01:48 AM Number of Addenda: 0 Note Initiated On: 12/21/2021 8:56 AM Procedure Code(s): --- Professional --- G0105, Colorectal cancer screening; colonoscopy on individual at high risk Diagnosis Code(s): --- Professional --- K57.30, Diverticulosis of large intestine without perforation orabscess without bleeding K64.9, Unspecified hemorrhoids Z80.0, Family history of malignant neoplasm of digestive organs Z12.11, Encounter for screening for malignant neoplasm of colon CPT copyright 2020 [employer]. All rights reserved. The codes documented in this report are preliminary and upon air quality consultant reviewmay be revised to meet current compliance requirements. Recognized by the [employer] for promoting quality in endoscopy Remington Wagner MD ENDOSCOPY PROCEDURES Final Re sult * (ABNORMAL) Albumin Creatinine Ratio, Urine (11/18/2021) SCRIBED Creatinine, Urine 33(A) 63 - 166 EXTERNAL LAB SCRIBED Microalbumin 0.9(A) 1.0 - 30.0 EXTERNAL LAB SCRIBED Microalb/Creat Ratio 27 EXTERNAL LAB Urine 11/18/2021 Historical Provider MD LAB URINE ORDERABLES Deanna l Result EXTERNAL LAB * (ABNORMAL) Lipid panel (11/18/2021) SCRIBED Cholesterol, Total 137 30 - 200 EXTERNAL LAB SCRIBED HDL 47(A) 0 - 40 EXTERNAL LAB SCRIBED LDL 70 0 - 129 EXTERNAL LAB SCRIBED Triglycerides 121 0 - 149 EXTERNAL LAB Blood 11/18/2021 Historical Provider MD LAB BLOOD ORDERABLES Deanna l Result EXTERNAL LAB * Comprehensive metabolic panel (11/18/2021) SCRIBED Sodium 138 - - - mmol/L EXTERNAL LAB SCRIBED Potassium 4.4 - - - mmol/L EXTERNAL LAB SCRIBED Chloride 105 - - - mmol/L EXTERNAL LAB SCRIBED Carbon Dioxide 23 - - - mmol/L EXTERNAL LAB SCRIBED Urea Nitrogen (BUN) 36 - - - mg/dl EXTERNAL LAB SCRIBED Creatinine 1.49 - - - mg/dl EXTERNAL LAB SCRIBED Glucose 96 - - - mg/dl EXTERNAL LAB SCRIBED Calcium 9.3 - - - mg/dl EXTERNAL LAB SCRIBED Bilirubin 0.6 - - - mg/dl EXTERNAL LAB SCRIBED Plasma Protein 7.0 - - - g/dl EXTERNAL LAB SCRIBED Albumin 4.4 - - - g/dl EXTERNAL LAB SCRIBED Alkaline Phosphatase 66 - - - Units/L EXTERNAL LAB SCRIBED Alanine Transaminase (ALT) 53 - - - Units/L EXTERNAL LAB SCRIBED Aspartate Transaminase (AST) 32 - - - Units/L EXTERNAL LAB SCRIBED eGFR in 45 - - - EXTERNAL LAB SCRIBED eGFR in NonAfrican [place] 39 - - - EXTERNAL LAB Blood 11/18/2021 us Historical Provider LAB BLOOD ORDERABLES Deanna l Result EXTERNAL LAB * Diabetic Foot Exam (06/28/2021) us Historical Provider HEALTH MAINTENANCE Final Result from Last 3 Months or Most Recently Relevant to Health Maintenance Advance Directives For more information, please contact: [phone] * Full Code (Latest Code Status on File) Date Activated Date Inactivated Comments 12/21/2021 9:08 AM 12/21/2021 3:50 PM * Full Code Date Activated Date Inactivated Comments 12/21/2021 9:07 AM 12/21/2021 9:08 AM * Full Code Date Activated Date Inactivated Comments 07/15/2018 8:55 PM 07/19/2018 6:13 PM * Full Code Date Activated Date Inactivated Comments 07/15/2018 6:01 PM 07/15/2018 8:55 PM Care Teams Commutator V Ring Assembler Relationship Specialty Start Date End Date Hossein Hoffman MD [address] [place] [address] PCP - General Internal Medicine 03/12/19
--- OUTSIDE RECORDS SUMMARY | 2024-07-20 07:33 | XMS_ITS | Referral Summary ---
Author Organization [facility] Address [address] [place] [phone] Care Team Providers Care Produce Shipper Name Role Phone Hossein Hoffman MD Primary Care Provider [phone] Allergies No known active allergies Medications bisoprolol [...] (10/11/2021): Added automatically from request for surgery [id number] Family history of colon cancer in father 022 Overview (10/11/2021): Added automatically from request for surgery [id number] Encounter for screening colonoscopy 10/11/2021 Overview (10/11/2021): Added automatically from request for surgery [id number] Type 2 diabetes mellitus wit h hyperglycemia, [...] records. Assessment & Plan (06/12/2022 4:28 PM MAGAZINE FEEDER): Diagnosed around 2007 Started insulin in February [...] having low sugars. Patient to see a elevator dispatcher. Assessment & Plan (01/29/2022 3:51 PM CDT): [...] having low sugars. Patient to see a elevator dispatcher. Assessment & Plan (09/25/2021 2:56 PM CDT): [...] having low sugars. Patient to see a elevator dispatcher. Assessment & Plan (06/12/2021 4:40 PM MAGAZINE FEEDER): Diagnosed around 2007 Started insulin in February [...] having low sugars. Patient to see a elevator dispatcher. Assessment & Plan (02/07/2021 5:04 PM CDT): [...] basis. Assessment & Plan (05/17/2020 4:26 PM MAGAZINE FEEDER): Diagnosed around 2007 Started insulin in February [...] 01/20/2020 Neuropathy : mild. Eye : seeing mangle feeder. Plan: Continue diet plan, and work on [...] 07/02/19 Neuropathy : mild. Eye : seeing mangle feeder. Plan: Continue diet plan, and work on [...] 07/16/2018 Assessment & Plan (07/16/2018 4:04 AM MAGAZINE FEEDER): Patient with right lower lobe infiltrates. Presents with cough and diminished breath sounds on physical exam. Currently on Rocephin for UTI. Will add azithromycin for atypical bacterial coverage. Monitor CBC and BMP. Septic workup in progress. Will follow up with urine and blood cultures. Acute cystitis with hematuria 07/16/2018 Assessment & Plan (07/16/2018 9:52 PM MAGAZINE FEEDER): Septic workup is in progress. Will follow [...] PCP Assessment & Plan (06/12/2022 4:28 PM MAGAZINE FEEDER): Controlled- complicated with CKD - low salt diet - continue follow up with PCP Assessment & Plan (01/29/2022 3:52 PM CDT): Controlled- complicated with CKD - low salt diet - continue follow up with PCP Assessment & Plan (09/25/2021 2:57 PM CDT): Controlled- complicated with CKD - low salt diet - continue follow up with PCP Assessment & Plan (06/12/2021 4:41 PM MAGAZINE FEEDER): Controlled- complicated with CKD - low salt diet - continue follow up with PCP Assessment & Plan (05/17/2020 4:24 PM MAGAZINE FEEDER): Controlled- complicated with CKD - low salt [...] plan. Assessment & Plan (07/16/2018 4:00 AM MAGAZINE FEEDER): Stable. Will continue on lisinopril and metoprolol. [...] food. Assessment & Plan (07/16/2018 4:06 AM MAGAZINE FEEDER): Weight loss discussed and encouraged. Will request consult for dietary and consumer educator Acute kidney injury 07/16/2018 Assessment & Plan (07/16/2018 5:58 AM MAGAZINE FEEDER): Multifactorial due to dehydration secondary to hyperglycemic hyperosmolar state and concurrent UTI Continue with IV fluid Monitor kidney function with serial BMP Replete electrolytes as needed. Bleeding from the nose 07/16/2018 Assessment & Plan (07/16/2018 9:51 PM MAGAZINE FEEDER): Developed today, controlled with pressure. Lovenox stopped Hypokalemia 07/16/2018 Assessment & Plan (07/16/2018 9:52 PM MAGAZINE FEEDER): Replete Hypophosphatemia 07/16/2018 Assessment & Plan (07/16/2018 9:53 PM MAGAZINE FEEDER): Replete Resolved Problems Problem Noted Date Diagnosed Date Resolved Date Hyperosmolar non-ketotic sta te in patient with type 2 diabetes mellitus 07/16/2018 10/26/2019 Assessment & Plan (07/17/2018 5:43 PM MAGAZINE FEEDER): ABGs consistent with respiratory alkalosis. Will continue on insulin drip. Repeat BMP every 4 hours. Replete electrolytes as needed Will stop insulin drip when anion gap is closed. Continue IV fluids with normal saline, switch to D5 half-normal saline when blood sugars less than 250 Will start on subcutaneous Lantus 20 units and SSI when on my gap is closed. Will get consumer educator and nutritional consult Changed to Lantus and SS coverage, started on clear diet Transferred to floor stable 07/18 Diabetic ketoacidosis withou t coma associated with diabetes mellitus due to underlying condition 08/21/2018 Social History Tobacco Use Types Packs/Day Years [...] on file Legal Sex Female 2:43 PM MAGAZINE FEEDER Gender Identity Female 01/31/2021 6:43 AM CDT Sexual Orientation Straight 01/31/2021 6 :43 AM CDT Last Filed Vital Signs Vital Sign Reading [...] 10/11/2022 4:09 PM CDT Plan of Treatment Not on file Procedures Procedure Name Priority Date/Time Associated Diagnosis [...] 5.5 % Blood 10/11/2022 4:22 PM CDT us Kiko Snyder MD POINT OF CARE TEST ORDERABLES Final Result * (ABNORMAL) Diabetic Eye Exam (09/14/2022) Sonia Chan MD HEALTH MAINTENANCE Final Result * COLONOSCOPY (12/21/2021 8:56 AM CDT) Anatomical Region Laterality Modality Other Narrative Procedure Note Remington Wagner MD - 12/21/2021 8:56 AM CDT [facility] Patient Name: Aristides Sauceda Procedure Date: 12/21/2021 8:56 AM Date of : 1965 Admit Type: Outpatient Age: 56 Gender: Female Attending MD: Remington Wagner M.D. Room: [facility] ENDOSCOPY ROOM 2 Note Status: Finalized Patient [...] scope was passed under direct vision. TheColonoscope [id number] was introduced through the and advanced to the. The scope was passed under direct vision. The Pediatric Colonoscope [id number] was introduced through the anus and advanced [...] malignant neoplasm of colon CPT copyright 2020 [employer]. All rights reserved. The codes documented in this report are preliminary and upon web services developer reviewmay be revised to meet current compliance requirements. Recognized by the [place] [employer] for promoting quality in endoscopy Remington Wagner MD ENDOSCOPY PROCEDURES Final Re sult * (ABNORMAL) Albumin Creatinine Ratio, Urine (11/18/2021) [facility] SCRIBED Creatinine, Urine 33(A) 63 - 166 EXTERNAL LAB SCRIBED Microalbumin 0.9(A) 1.0 - 30.0 EXTERNAL LAB SCRIBED Microalb/Creat Ratio 27 EXTERNAL LAB Urine 11/18/2021 Historical Provider MD LAB URINE ORDERABLES Deanna l Result EXTERNAL LAB * (ABNORMAL) Lipid panel (11/18/2021) [facility] SCRIBED Cholesterol, Total 137 30 - 200 EXTERNAL LAB SCRIBED HDL 47(A) 0 - 40 EXTERNAL LAB SCRIBED LDL 70 0 - 129 EXTERNAL LAB SCRIBED Triglycerides 121 0 - 149 EXTERNAL LAB Blood 11/18/2021 [facility] Provider MD LAB BLOOD ORDERABLES Deanna l Result EXTERNAL LAB * Comprehensive metabolic panel (11/18/2021) Pathologist [facility] SCRIBED Sodium 138 - - - mmol/L [...] - EXTERNAL LAB SCRIBED eGFR in NonAfrican [place] 39 - - - EXTERNAL LAB Blood 11/18/2021 us Historical Provider LAB BLOOD ORDERABLES Deanna l Result EXTERNAL LAB * Diabetic Foot Exam (06/28/2021) us Historical Provider HEALTH MAINTENANCE Final Result from Last 3 Months or Most Recently Relevant to Health Maintenance Advance Directives For more information, please contact: [phone] * Full Code (Latest Code Status on File) Date Activated Date Inactivated Comments 12/21/2021 9:08 AM 12/21/2021 3:50 PM * Full Code Date Activated Date Inactivated Comments 12/21/2021 9:07 AM 12/21/2021 9:08 AM * Full Code Date Activated Date Inactivated Comments 07/15/2018 8:55 PM 07/19/2018 6:13 PM * Full Code Date Activated Date Inactivated Comments 07/15/2018 6:01 PM 07/15/2018 8:55 PM Care Teams Produce Shipper Relationship Specialty Start Date End Date Hossein Hoffman MD [address] [place] [address] PCP - General Internal Medicine 03/12/19
--- OUTSIDE RECORDS SUMMARY | 2024-07-20 07:33 | XMS_ITS | Clinical Summary ---
Author Organization [facility] Address [address] [place] [address] Care Team Providers Care In Flight Refueling Manager Name Role Phone Hossein Hoffman MD Primary Care Provider [phone] Joselyn Frazier MD Unavailable Jack Navarro MD Unavailable [phone] Allergies No known active allergies Medications Glucose Blood (TRUE METRIX BLOOD GLUCOSE TEST) test strip 1 strip by Other route as needed. 1 Active aspirin 81 MG chewable tablet Chew 1 tablet (81 mg total) by mouth daily. 90 tablet 4 1 Active nitroglycerin 0.[address] 1 tablet (0.4 mg total) under the tongue every 5 (five) minutes as needed for Chest Pain. 90 tablet 2 1 Active Additional Information Patient not taking.Reported on 03/28/2023 insulin glargine (LANTUS SOLOSTAR) 100 UNIT/ML injection (PEN) Inject 4 Units into the skin daily as needed for High blood sugar. 3 Active ULTICARE MINI PEN NEEDLES 31G X 6 MM Misc as needed. 3 Active OZEMPIC, 1 MG/DOSE, 2 MG/1.5ML injection (PEN) Inject 1 mg into the skin once a week. 3 Active diphenhydrAMIN E-APAP (TYLENOL PM) 25-500 MG Tab tablet Take 2 tablets by mouth nightly at bedtime. Active bisoprolol (ZEBETA) 10 MG tablet Take 1 tablet (10 mg total) by mouth 2 (two) times daily. Active multi vitamin/minera ls (THERA-M ENHANCED) tablet Take 1 tablet by mouth daily. Active BRILINTA 90 MG tablet take 1 tablet by mouth 2 times daily. 180 tablet 3 4 Active atorvastatin (LIPITOR) 20 MG tablet TAKE 1 TABLET (20 MG TOTAL) BY MOUTH NIGHTLY AT BEDTIME. 90 tablet 3 4 Active furosemide (LASIX) 20 MG tablet TAKE ONE TABLET BY MOUTH DAILY 90 tablet 3 4 Active sacubitril-rc sartan (ENTRESTO) 24-26 MG tablet Take 1 tablet by mouth 2 (two) times daily. 180 tablet 3 5 Active ENTRESTO 24-26 MG tablet take 1 tablet by mouth 2 (two) times daily. 180 tablet 3 4 07/02/19 25 Discontin ued(Reord er) Active Problems Problem Noted Date Diagnosed Date Presence of cardioverter defibrillator 4 Elevated troponin 01/05/2023 Chronic systolic (congestive ) heart failure ([facility]) 11/03/2020 Coronary artery disease invo lving [place] coronary artery of [place] heart without angina pectoris 11/03/2020 Ischemic cardiomyopathy 11/03/2020 Dyslipidemia 11/03/2020 Stage 3 chronic kidney disease 10/26/2020 Other hyperlipidemia 10/23/2020 Type 2 diabetes mellitus wit h circulatory disorder, with long-term current use of insulin ([facility]) 10/23/2020 ST elevation myocardial infa rction involving left anterior descending (LAD) coronary artery ([facility]) 10/23/2020 STEMI (ST elevation myocardi al infarction) ([facility]) 10/23/2020 Pancreatitis ([facility]) 11/24/2018 Acute cystitis with hematuria 07/16/2018 Overview (11/24/2018): Last Assessment & Plan: Septic workup is in progress. Will follow up with blood culture and urine culture results. Will start on IV Rocephin Monitor CBC Monitor kidney function with daily BMP, replete electrolytes as needed. RYDER improving, cont to monitor RYDER (acute kidney injury) 07/16/2018 Overview (11/24/2018): Last Assessment & Plan: Multifactorial due to dehydration secondary to hyperglycemic hyperosmolar state and concurrent UTI Continue with IV fluid Monitor kidney function with serial BMP Replete electrolytes as needed. Bleeding from the nose 07/16/2018 Overview (11/24/2018): Last Assessment & Plan: Developed today, controlled with pressure. Lovenox stopped Class 2 severe obesity due t o excess calories with serious comorbidity and body mass index (BMI) of 39.0 to 39.9 in adult 07/16/2018 Overview (11/24/2018): Last Assessment & Plan: Weight loss discussed and encouraged. Will request consult for dietary and clinical educator Essential (primary) hypertension 07/16/2018 Overview (11/24/2018): Last Assessment & Plan: Stable. Will continue on lisinopril and metoprolol. Hyperosmolar non-ketotic sta te in patient with type 2 diabetes mellitus ([facility]) 07/16/2018 Overview (11/24/2018): Last Assessment & Plan: ABGs consistent with respiratory alkalosis. Will continue on insulin drip. Repeat BMP every 4 hours. Replete electrolytes as needed Will stop insulin drip when anion gap is closed. Continue IV fluids with normal saline, switch to D5 half-normal saline when blood sugars less than 250 Will start on subcutaneous Lantus 20 units and SSI when on my gap is closed. Will get clinical educator and nutritional consult Changed to Lantus and SS coverage, started on clear diet Transferred to floor stable 3/8 Hypokalemia 07/16/2018 Overview (11/24/2018): Last Assessment & Plan: Replete Hypophosphatemia 07/16/2018 Overview (11/24/2018): Last Assessment & Plan: Replete Right lower lobe pneumonia 07/16/2018 Overview (11/24/2018): Last Assessment & Plan: Patient with right lower lobe infiltrates. Presents with cough and diminished breath sounds on physical exam. Currently on Rocephin for UTI. Will add azithromycin for atypical bacterial coverage. Monitor CBC and BMP. Septic workup in progress. Will follow up with urine and blood cultures. Resolved Problems Problem Noted Date Diagnosed Date Resolved Date Acute ST elevation myocardia l infarction (STEMI) involving left anterior descending (LAD) coronary artery ([facility]) 10/23/2020 05/23/2021 Encounters Date Type Department Care Team Description 07/08/2024 1:15 AM MD PEDIATRIC ALLERGIST Allied [facility] [address] [place] [address] Jack Navarro MD 07/02/2024 [facility]phone [facility] [address] [place] [address] Joselyn Frazier MD Refill Request 04/24/2024 Toplist Message Enc [facility] BUSINESS OFFICE [facility] Provider ACTION REQUIRED from Last 3 Months Family History Medical History Relation Comments Diabetes Mother Heart Disease Mother Hypertension Mother Autoimmune Disease Sister Relation Status Comments Father Alive Mother Sister Social History Tobacco Use Types Packs/Day Years Used Date Smoking Tobacco: Former Cigarettes 0.5 20 1 985 - 2005 Smokeless Tobacco: Never Tobacco Cessation:Counseling Given: Not Answered Alcohol Use Standard Drinks/Week Comments Yes 0 (1 standard drink = 0.6 oz pur e alcohol) rarely Humiliation, Afraid, Rape, and Kick questionnair e Answer Date Recorded Within the last year, have y ou been afraid of your partner or ex-partner? No 01/06/2023 Within the last year, have y ou been humiliated or emotionally abused in other ways by your partner or ex-partner? No Within the last year, have y ou been kicked, hit, slapped, or otherwise physically hurt by your partner or ex-partner? No 01/06/2023 Within the last year, have y ou been raped or forced to have any kind of sexual activity by your partner or ex-partner? No 01/06/2023 Overall Financial Resource Strain (CARDIA) Answe r Date Recorded How hard is it for you to pa y for the very basics like food, housing, medical care, and heating? Not hard at all 01/06/2023 Hunger Vital Sign Answer Date Recorded Within the past 12 months, y ou worried that your food would run out before you got the money to buy more. Never true 01/07/20 23 Within the past 12 months, t he food you bought just didn't last and you didn't have money to get more. Never true 01/06/2023 PRAPARE - Transportation Answer Date Re corded In the past 12 months, has l ack of transportation kept you from medical appointments or from getting medications? No 12/12 In the past 12 months, has l ack of transportation kept you from meetings, work, or from getting things needed for daily living? No 01/06/2023 Housing Stability Vital Sign Answer Catrachito e Recorded In the last 12 months, was t here a time when you were not able to pay the mortgage or rent on time? No 01/06/2023 In the last 12 months, how many places have you lived? 1 01/06/2023 In the last 12 months, was t here a time when you did not have a steady place to sleep or slept in a mcfp (including now)? No 01/06/2023 Comments No Sex and Gender Information Value Date Recorded Sex Assigned at Not on file Legal Sex Female 9:31 PM MD PEDIATRIC ALLERGIST Gender Identity Female 05/24/2021 9:30 AM MD PEDIATRIC ALLERGIST Sexual Orientation Straight 05/24/2021 9: 30 AM MD PEDIATRIC ALLERGIST Last Filed Vital Signs Vital Sign Reading Time Taken Comments Blood Pressure 138/84 03/26/2024 9:19 AM MD PEDIATRIC ALLERGIST Pulse 72 03/26/2024 9:19 AM MD PEDIATRIC ALLERGIST Temperature 36.6 C (97.9 F) 01/05/2023 11:39 PM CDT Respiratory Rate 20 03/26/2024 9:19 AM MD PEDIATRIC ALLERGIST Oxygen Saturation 96% 03/26/2024 9:19 AM MD PEDIATRIC ALLERGIST Inhaled Oxygen Concentration - - Weight 122.4 kg (269 lb 12.8 oz) 03/26/2024 9:19 AM MD PEDIATRIC ALLERGIST Height 172.7 cm (5' 8 ) 03/26/2024 9:19 AM MD PEDIATRIC ALLERGIST Body Mass Index 41.02 03/26/2024 9:19 AM MD PEDIATRIC ALLERGIST Plan of Treatment Upcoming Encounters Date Type Department Care Team (Late Contact Info) Description 10/22/2024 1:15 AM CDT Allied Health/Nurse Visit [facility] [address] [place] [phone] Jack Navarro MD [address] [place] [address] 03/26/2025 8:00 AM MD PEDIATRIC ALLERGIST Appointment [facility] Non Invasive Cardiology - [facility] [address] [place] [phone] Joselyn Frazier MD [address] [place] [address] 03/30/2025 9:15 AM MD PEDIATRIC ALLERGIST Office Visit [facility] [address] [place] [address] Joselyn Frazier MD [address] [place] [address] 04/06/2025 2:00 PM MD PEDIATRIC ALLERGIST Office Visit [facility] [address] [place] [phone] Jack Navarro MD [address] [place] [address] 04/06/2025 2:00 PM MD PEDIATRIC ALLERGIST Allied Health/Nurse Visit [facility] [address] [place] [address] Jack Navarro MD [address] [place] [address] Health Maintenance Due Date Last Done Comments Cervical Cancer Screening Pap Smear (Age 30 to 64) Every 3 Years 1965 Colorectal Cancer Screening Colonoscopy (10 Years) 1965 Kidney Health Evaluation 1965 Annual Physical 02/13/1967 Diabetes: Retinopathy Eye Exam 02/13/1982 Cervical Cancer Screening Pap with HPV Testing (Age 30 to 64) Every 5 Years 02/13/1994 Cervical Cancer Screening with HPV 02/13/1994 Mammogram Screening 2004 Zoster Vaccines (2 of 2) 04/22/2019 02/25/2019 Hemoglobin A1C 05/11/2021 11/09/2020, 10/11, 11/24/2018 ASCVD LDL 01/07/2024 01/06/2023, 10/13, 10/24/2020 Lipid Panel 01/07/2024 01/06/2023, 10/13, 10/24/2020 RSV Immunization or 60+ Years (1 - Risk 60-74 years 1-dose series) 2024 Pneumococcal Vaccine: Pediatrics (0 to 5 Years) and At-Risk Patients (6 to 64 Years) (3 of 3 - PPSV23 or PCV20) 02/13/2029 12/09/2019, 02/25/2019 DTaP, Tdap and Td Vaccines (8 - Td or Tdap) 01/12/2031 01/12/2021, 10/16/1994, 12/25/1977, Additional history exists Hepatitis C Completed 10/24/2020 COVID-19 Vaccine Completed 01/22/2024, , 03/01/2022, Additional history exists Influenza Adult Completed 01/22/2024, 06/2022, 02/06/2023, Additional history exists Meningococcal B Vaccine Aged Out No l onger eligible based on patient's age to complete this topic Meningococcal Vaccine Aged Out No jasmin lupillo eligible based on patient's age to complete this topic RSV Immunizations Under 20 Months Aged Out No longer eligible based on patient's age to complete this topic Medical Devices Implanted Type Area Performance Test Engineer Device Identifier Shelf Expiration Date Model / Serial / Lot Jennifer Schumacher-11/20/2022 Implanted:Qty : 1 on 11/20/2022 by Jack Navarro MD ICD [employer] 09/09/2024 [id number] / [id number] / Description:DX: MARY Cheng Ra-11/20/2022 Implanted:Qty : 1 on 11/20/2022 by Jack Navarro MD Lead Implant [employer] 10/10/2025 [id number] / [id number] / Cheng Rv-11/20/2022 Implanted:Qty : 1 on 11/20/2022 by Jack Navarro MD Lead Implant [employer] 09/09/2025 [id number] / [id number] / Cv Resolute Paulina Deuce-Lad-2020 Implanted: by Maxx Hall MD (Quantity not on file) Stent Coronary LAD [employer] CORON[employer] AND [employer] HE[employer] - DIV MEDT 02/11/2022 [id number] / / [id number] Procedures Procedure Name Priority Date/Time Associated Diagnosis Comments LIPID PANEL Routine 01/06/2023 5:29 AM CDT HEMOGLOBIN, GLYCOSYLATED Routine 11/09/2020 HEPATITIS C ANTIBODY TIMED 10/24/2020 9:18 AM CDT from Last 3 Months or Most Recently Relevant to Health Maintenance Results * (ABNORMAL) LIPID PANEL (01/06/2023 5:29 AM CDT) Pathologist [facility] CHOLESTEROL 109 MG/DL 02/11/2023 8:49 AM CDT [facility] Comment:DESIRABLE: <200 TRIGLYCERIDES 95 MG/DL 02/11/2023 8:49 AM CDT [facility] Comment:<150 NORMAL HDL 44(L) >49 MG/DL 02/11/2023 8:49 AM CDT [facility] LDL (CALCULATED) 46 MG/DL 02/12/20 8:49 AM CDT [facility] Comment:<100 OPTIMAL VLDL CALCULATION 19 MG/DL 02/12/20 8:49 AM CDT [facility] Comment:REFERENCE RANGE NOT ESTABLISHED CHOL/HDL RATIO 2.5 02/11/2023 8:49 AM CDT [facility] Comment:REFERENCE RANGE NOT ESTABLISHED LDL/HDL 1.0 02/11/2023 8:49 AM CDT [facility] Comment:REFERENCE RANGE NOT ESTABLISHED NON HDL CHOLESTEROL 65 MG/DL 02/11/2023 8:49 AM CDT [facility] Comment:REFERENCE RANGE NOT ESTABLISHED 01/06/2023 5:29 AM CDT Yosi Coley III, MD LABORATORY Final R esult Performing Organization Address City/[facility] Co de Phone Number [facility] [address] [place] [address], [place] [phone] * HEMOGLOBIN, GLYCOSYLATED (11/09/2020) Pathologist [facility] HGB A1C 6.6 % 11/09/2020 Doc [facility] LABORATORY Final Result * HEPATITIS C ANTIBODY (10/24/2020 9:18 AM CDT) Pathologist [facility] HEPATITIS C AB NON-REACTI VE NON-REACT SINDY 10/24/2020 12:42 PM CDT [facility] Comment: ANTIBODIES TO HCV NOT DETECTED. DOES NOT EXCLUDE THE POSSIBILITY OF EXPOSURE TO HCV. 10/24/2020 9:18 AM CDT Raf Forbes MD LABORATORY Final Result Performing Organization Address [facility] Co de Phone Number [facility] [address] [place] [address], [place] [phone] [id number] from Last 3 Months or Most Recently Relevant to Health Maintenance Insurance [facility] Advance Directives * Full Code (Latest Code Status on File) Date Activated Date Inactivated Comments 01/05/2023 11:42 PM 03/27/2023 11:02 AM * Full Code Date Activated Date Inactivated Comments 10/23/2020 11:33 PM 10/26/2020 6:42 PM * Full Code Date Activated Date Inactivated Comments 11/24/2018 3:19 AM 11/27/2018 8:33 PM Care Teams In Flight Refueling Manager Relationship Specialty Start Date End Date Hossein Hoffman MD [address] [place] [phone] PCP - General INTERNAL MEDICINE 10/11/20 Joselyn Frazier MD [address] [place], [place] [address] Consulting Physician CARDIOVASCULAR DISEASE 02/17/21 Jack Navarro MD [address] [place], [place] [phone] Consulting Physician CLINICAL CARDIAC ELECTROPHYSIOLOGY 11/21/22
--- OUTSIDE RECORDS SUMMARY | 2024-07-20 07:33 | XMS_ITS | Encounter Summary ---
Author Organization [employer] Address [address] [place] [address] Care Team Providers Care Check Writer Name Role Phone Unavailable Primary Care Provider Unavailabl e Encounter Details Date Type Department Care Team (Late st Contact Info) Description 09/27/2000 Outpatient [place] [address] [address] Social History Tobacco Use Types Packs/Day Years Used Date Smoking Tobacco: Never Assessed Comments Unknown Sex and Gender Information Value Date Recorded Sex Assigned at Not on file Legal Sex Female 4:23 AM BRICK UNLOADER TENDER Gender Identity Not on file Sexual Orientation Not on file documented as of this encounter Plan of Treatment Not on file documented as of this encounter Visit Diagnoses Not on filedocumented in this encounter
--- OUTSIDE RECORDS SUMMARY | 2024-07-20 07:33 | XMS_ITS | Encounter Summary ---
Author Organization [employer] Address [address] [place] [address] Care Team Providers Care Varnish Filterer Name Role Phone Unavailable Primary Care Provider Unavailabl e Encounter Details Date Type Department Care Team (Late st Contact Info) Description 06/28/2000 Outpatient [place] [address] [address] Social History Tobacco Use Types Packs/Day Years Used Date Smoking Tobacco: Never Assessed Comments Unknown Sex and Gender Information Value Date Recorded Sex Assigned at Not on file Legal Sex Female 4:23 AM TIME ANALYSIS CLERK Gender Identity Not on file Sexual Orientation Not on file documented as of this encounter Plan of Treatment Not on file documented as of this encounter Visit Diagnoses Not on filedocumented in this encounter
--- OUTSIDE RECORDS SUMMARY | 2024-07-20 07:33 | XMS_ITS | Encounter Summary ---
Author Organization [email or web address] Address [address] [place] [address] Care Team Providers Care Cupola Operator Name Role Phone Unavailable Primary Care Provider Unavailabl e Encounter Details Date Type Department Care Team (Late st Contact Info) Description 05/28/2000 Outpatient [place] [id number] [address] Social History Tobacco Use Types Packs/Day Years Used Date Smoking Tobacco: Never Assessed Comments Unknown Sex and Gender Information Value Date Recorded Sex Assigned at Not on file Legal Sex Female 4:23 AM CONVENTION MANAGER Gender Identity Not on file Sexual Orientation Not on file documented as of this encounter Plan of Treatment Not on file documented as of this encounter Visit Diagnoses Not on filedocumented in this encounter
--- OUTSIDE RECORDS SUMMARY | 2024-07-20 07:33 | XMS_ITS | Clinical Summary ---
Author Organization [employer] Address [address] [place]: Epic Prelude ADT [place] [address] Care Team Providers Care Head Operator Name Role Phone Unavailable Primary Care Provider Unavailabl e Social History Tobacco Use Types Packs/Day Years Used Date Smoking Tobacco: Never Assessed Comments Unknown Sex and Gender Information Value Date Recorded Sex Assigned at Not on file Legal Sex Female 4:23 AM GLUE BONE CRUSHER Gender Identity Not on file Sexual Orientation Not on file Plan of Treatment Health Maintenance Due Date Last Done Comments DTAP/TDAP/TD VACCINES (1 - Tdap) 02/13/1983 CERVICAL CANCER SCREENING 02/13/1994 BREAST CANCER SCREENING 2004 COLORECTAL SCREENING 02/13/2009 Colorectal Cancer Screening 02/13/2009 FIT-DNA Q 3 years 02/13/2009 FIT/FOBT Q 1 year 02/13/2009 Flex Sig/CT Colonography Q 5 years 02/13/2009 ZOSTER VACCINE (1 of 2) 02/13/2014 INFLUENZA VACCINE (#1) 2023 RSV VACCINE (60+ or ) (1 - 1-dose 75+ series) 02/13/2039 HEPATITIS B VACCINES Aged Out No long er eligible based on patient's age to complete this topic PNEUMOCOCCAL VACCINE 0-49 YEARS Aged Out No longer eligible based on patient's age to complete this topic
--- OUTSIDE RECORDS SUMMARY | 2024-07-20 07:33 | XMS_ITS | Encounter Summary ---
Author Organization [facility] Address [address] [place] [address] Care Team Providers Care Water Resources Project Manager Name Role Phone Hossein Hoffman MD Primary Care Provider [phone] Joselyn Frazier MD Unavailable Jack Navarro MD Unavailable [phone] Encounter Details Date Type Department Care Team (Late st Contact Info) Description 04/24/2024 [employer] Message Zoila [facility] Provider ACTION REQUIRED Social History Tobacco Use Types Packs/Day Years Used Date Smoking Tobacco: Former Cigarettes 0.5 20 1 5 - 2004 Smokeless Tobacco: Never Alcohol Use Standard Drinks/Week [...] place to sleep or slept in a chcf (including now)? No 01/06/2023 Comments No Sex and Gender Information Value Date Recorded Sex Assigned at Not on file Legal Sex Female 9:31 PM NEUROLOGY STROKE PHYSICIAN Gender Identity Female 05/24/2021 9:30 AM NEUROLOGY STROKE PHYSICIAN Sexual Orientation Straight 05/24/2021 9: 30 AM NEUROLOGY STROKE PHYSICIAN documented as of this encounter Functional Status * Are you deaf or do you have serious difficulty hearing Answer Date of Assessment Author Status No 01/05/2023 11:43 PM CDT Nataly Ferguson R N Active * Are you blind or do you have serious difficulty seeing, even when wearing glasses? Answer Date of Assessment Author Status No 01/05/2023 11:43 PM Ntaaly Hughes R N Active * Do you have serious difficulty walking or climbing stairs? Answer Date of Assessment Author Status No 01/05/2023 11:43 PM Nataly Hughes R N Active * Do you have difficulty dressing or bathing? Answer Date of Assessment Author Status No 01/05/2023 11:43 PM CDT Nataly Ferguson R N Active * Because of a physical, mental, or emotional condition, do you have difficulty doing errands alone such as visiting a doctor's office or shopping? Answer Date of Assessment Author Status No 01/05/2023 11:43 PM CDT Nataly Ferguson R N Active documented as of this encounter Mental Status * Because of a physical, mental, or emotional condition, do you have serious difficulty concentrating, remembering, or making decisions? Answer Entry Date Author Status No 01/05/2023 11:43 PM CDT Nataly Ferguson R N Active documented in this encounter Plan of Treatment Upcoming Encounters Date Type Department Care Team (Late st Contact Info) Description 10/22/2024 1:15 AM CDT Allied Health/[facility]urse [facility] [place] [facility] [address] [place] [address] Jack Navarro MD [address] [place] [address] 03/26/2025 8:00 AM NEUROLOGY STROKE PHYSICIAN Appointment [facility] Non Invasive Card[facility] - [place] [facility] [address] [place] [address] Joselyn Frazier MD [address] [place] [address] 03/30/2025 9:15 AM NEUROLOGY STROKE PHYSICIAN [facility] [address] [address] Joselyn Frazier MD [address] [place] [address] 04/06/2025 2:00 PM NEUROLOGY STROKE PHYSICIAN [facility] [address] [address] Jack Navarro MD [address] [place] [address] 04/06/2025 2:00 PM NEUROLOGY STROKE PHYSICIAN Allied Health/Nurse Visit [place] [facility] [address] [place] [address] Jack Navarro MD [address] [place], [place] [address] documented as of this encounter Visit Diagnoses Not on filedocumented in this encounter Care Teams Water Resources Project Manager Relationship Specialty Start Date End Date Hossein Hoffman MD [address] [place] [phone] PCP - General INTERNAL MEDICINE 10/11/20 Joselyn Frazier MD [address] [place] [address] Consulting Physician CARDIOVASCULAR DISEASE 02/17/21 Jack Navarro MD [address] [place] [address] Consulting Physician CLINICAL CARDIAC ELECTROPHYSIOLOGY 11/21/22 documented as of this encounter
--- OUTSIDE RECORDS SUMMARY | 2024-07-20 07:34 | XMS_ITS | Encounter Summary ---
Author Organization [facility] Address [address] [place] [address] Care Team Providers Care Lieutenant/Deputy Name Role Phone Hossein Hoffman MD Primary Care Provider Joselyn Frazier MD Unavailable Jack Navarro MD Unavailable [phone] Encounter Details Date Type Department Care Team (Late st Contact Info) Description 03/28/2023 Hospital Follow-up Call [facility] Care Unit [address] [place] [address] Mattie Bright, RN Social History Tobacco Use Types Packs/Day Years Used Date Smoking Tobacco: Former Cigarettes 0.5 20 1 985 - 2004 Smokeless Tobacco: Never Alcohol Use [...] place to sleep or slept in a halfway (including now)? No 01/06/2023 Comments No Sex and Gender Information Value Date Recorded Sex Assigned at Not on file Legal Sex Female 9:31 PM TECHNICAL WRITER AND EDITOR Gender Identity Female 05/24/2021 9:30 AM TECHNICAL WRITER AND EDITOR Sexual Orientation Straight 05/24/2021 9: 30 AM TECHNICAL WRITER AND EDITOR documented as of this encounter Functional Status * Are you deaf or do you have serious difficulty hearing Answer Date of Assessment Author Status No 01/05/2023 11:43 PM Nataly Hughes R N Active * Are you blind [...] 10/22/2024 1:15 AM CDT Allied Health/[facility] [address] [address] Jack Navarro MD [address] [place] [address] 03/26/2025 8:00 AM TECHNICAL WRITER AND EDITOR Appointment [facility] Non Invasive Cardiology - [address] [address] Joselyn Frazier MD [address] [place] [address] 03/30/2025 9:15 AM TECHNICAL WRITER AND EDITOR Office [facility] [place] [facility] [address] [address] Joselyn Frazier MD [address] [place] [address] 04/06/2025 2:00 PM TECHNICAL WRITER AND EDITOR Office [facility] [address] [address] Jack Navarro MD [address] [place] [address] 04/06/2025 2:00 PM TECHNICAL WRITER AND EDITOR Allied Health/Nurse Visit [facility] [address] [place] [address] Jack Navarro MD [address] [place] [address] documented as of this encounter Visit Diagnoses Not on filedocumented in this encounter Care Teams Lieutenant/Deputy Relationship Specialty Start Date End Date Hossein Hoffman MD [address] [place] [address] PCP - General INTERNAL MEDICINE 10/11/20 Joselyn Frazier MD [address] [place] [address] Consulting Physician CARDIOVASCULAR DISEASE 02/17/21 Jack Navarro MD [address] [place] [address] Consulting Physician CLINICAL CARDIAC ELECTROPHYSIOLOGY 11/21/22 documented as of this encounter
--- OUTSIDE RECORDS SUMMARY | 2024-07-20 07:34 | XMS_ITS | Encounter Summary ---
Author Organization [employer] Address [address] [place] [address] Care Team Providers Care Bow String Maker Name Role Phone Unavailable Primary Care Provider Unavailabl e Encounter Details Date Type Department Care Team (Late st Contact Info) Description 04/26/2000 Outpatient [place] [id number] [address] Social History Tobacco Use Types Packs/Day Years Used Date Smoking Tobacco: Never Assessed Comments Unknown Sex and Gender Information Value Date Recorded Sex Assigned at Not on file Legal Sex Female 4:23 AM PROMOTIONS OFFICER Gender Identity Not on file Sexual Orientation Not on file documented as of this encounter Plan of Treatment Not on file documented as of this encounter Visit Diagnoses Not on filedocumented in this encounter
--- OUTSIDE RECORDS SUMMARY | 2024-07-20 07:34 | XMS_ITS | Encounter Summary ---
Author Organization [facility] Address [address] [place] [address] Care Team Providers Care Help Desk Specialist Name Role Phone Hossein Hoffman MD Primary Care Provider [phone] Joselyn Frazier MD Unavailable Jack Navarro MD Unavailable [phone] Encounter Details Date Type Department Care Team (Late st Contact Info) Description 11/03/2020 Abstract [facility] [address] [place] [address] Maxx Patel MD [address] [place] [address] Social History Tobacco Use Types Packs/Day Years Used Date Smoking Tobacco: Former Cigarettes 0.5 20 1 985 - 2005 Smokeless Tobacco: Never Alcohol Use Standard Drinks/Week Comments Yes 0 (1 standard drink = 0.6 oz pur e alcohol) rarely Comments No Sex and Gender Information Value Date Recorded Sex Assigned at Not on file Legal Sex Female 9:31 PM FOUNDRY METALLURGIST Gender Identity Female 05/24/2021 9:30 AM FOUNDRY METALLURGIST Sexual Orientation Straight 05/24/2021 9: 30 AM FOUNDRY METALLURGIST COVID-19 Exposure Response Date Recorded In the last month, have you been in contact with someone who was confirmed or suspected to have Coronavirus / COVID-19? No / Unsure 11/03/2020 11:10 AM CDT documented as of this encounter [...] 10/22/2024 1:15 AM CDT [facility] Health[facility] [address] [place] [address] Jack Navarro MD [address] [place] [address] 03/26/2025 8:00 AM FOUNDRY METALLURGIST Appointment [facility] Non Invasive Cardiology - [place] [facility] [address] [place] [address] Joselyn Frazier MD [address] [place] [address] 03/30/2025 9:15 AM FOUNDRY METALLURGIST [facility] [place] [facility] [address] [place] [address] Joselyn Frazier MD [address] [place] [address] 04/06/2025 2:00 PM FOUNDRY METALLURGIST Office Visit [facility] [address] [place] [phone] Jack Navarro MD [address] [place], [place] [address] 04/06/2025 2:00 PM FOUNDRY METALLURGIST Allied Health/Nurse Visit [facility] [address] [place] [address] Jack Navarro MD [address] [place], [place] [address] documented as of this encounter Procedures Procedure Name Priority Date/Time Associated Diagnosis Comments CMP (ABSTRACTED LAB) Routine 11/02/2020 BNP (OUTSIDE LAB) Routine 11/02/2020 CBC (OUTSIDE LAB) Routine 11/02/2020 documented in this encounter Results * CBC (OUTSIDE LAB) (11/02/2020) WBC 8.8 HGB 9.0 HCT 27.3 PLT 356 RBC 3.09 MCV 88.3 MCH 29.1 MCHC 33.0 RDW 13.7 MPV 9.5 # NEUTROPHILS 66.2% LYMPHOCYTES 18.4% MONOCYTES 8.9% EOSINOPHIL % (NASAL) 2.5% 11/02/2020 Hossien Hoffman MD LAB-OUTSIDE/ABSTRACTED Final Result * BNP (OUTSIDE LAB) (11/02/2020) Pathologist [facility] B TYPE NATRIURETIC PEPTIDE 5,725 11/02/2020 us Hossein Hoffman MD LAB-OUTSIDE/ABSTRACTED Final Result * (ABNORMAL) CMP (ABSTRACTED LAB) (11/02/2020) SODIUM S/P/B 139 POTASSIUM S/P/B 4.2 CHLORIDE S/P/B 105 CO2 19 BUN 39 CREATININE S/P/B 1.56(A) 0.5 - 1.0 EGFR NON-AFR. AMER. 34 <=90 CALCIUM S/P/B 8.8 GLUCOSE 159 mg/dL TOTAL PROTEIN S/P/B 6.9 ALBUMIN S/P/B 2.9(A) 3.5 - 5.0 AST 53 ALT 117 ALKALINE PHOSPHATASE S/P/B 82 BILIRUBIN TOTAL S/P/B 0.4 11/02/2020 Hossein Hoffman MD LAB-OUTSIDE/ABSTRACTED Final Result documented in this encounter Visit Diagnoses Not on filedocumented in this encounter Care Teams Help Desk Specialist Relationship Specialty Start Date End Date Hossein Hoffman MD [address] [place] [address] PCP - General INTERNAL MEDICINE 10/11/20 Joselyn Frazier MD [address] [place], [place] [address] Consulting Physician CARDIOVASCULAR DISEASE 02/17/21 Jack Navarro MD [address] [place] [address] Consulting Physician CLINICAL CARDIAC ELECTROPHYSIOLOGY 11/21/22 documented as of this encounter
--- OUTSIDE RECORDS SUMMARY | 2024-07-20 07:34 | XMS_ITS | Encounter Summary ---
Author Organization [facility] Address [address] [place] [address] Care Team Providers Care Autocad Electrical Designer Name Role Phone Hossein Hoffman MD Primary Care Provider [phone] Joselyn Frazier MD Unavailable Jack Navarro MD Unavailable [phone] Encounter Details Date Type Department Care Team (Late st Contact Info) Description 10/23/2020 Hospital Orders Only [facility] Field Crop I Farmworker [address] [place] [address] Maxx Patel MD [address] [place] [address] Social History Tobacco Use Types Packs/Day Years Used Date Smoking Tobacco: Former Cigarettes 0.5 20 1 985 - 2005 Smokeless Tobacco: Never Alcohol Use Standard Drinks/Week Comments Yes 0 (1 standard drink = 0.6 oz pur e alcohol) rarely Comments No Sex and Gender Information Value Date Recorded Sex Assigned at Not on file Legal Sex Female 9:31 PM AUTOMOTIVE ARTIST Gender Identity Female 05/24/2021 9:30 AM AUTOMOTIVE ARTIST Sexual Orientation Straight 05/24/2021 9: 30 AM AUTOMOTIVE ARTIST COVID-19 Exposure Response Date Recorded In the last month, have you been in contact with someone who was confirmed or suspected to have Coronavirus / COVID-19? No / Unsure 10/24/2020 1:56 AM CDT documented as of this encounter Functional Status * Question Answer Date of Assessment Author Status Do you have serious difficulty walking or climbing stairs? No 10/24/2020 1:53 AM ARMAANT Samara Lockwood RN Act amalia * Question Answer Date of Assessment Author Status Do you have difficulty dressing or bathing? No 10/24/2020 1:53 AM ARMAANT Samara Lockwood RN Active Because of a physical, mental, or emotional condition, do you have difficulty doing errands alone such as visiting a doctor's office or shopping? No 10/24/2020 1:53 AM ARMAANT Samara Lockwood RN Acti ve * RETIRED Are you deaf or do you have serious difficulty hearing Answer Date of Assessment Author Status No 11/24/2018 3:46 AM CDT Activ e * RETIRED Are you blind or do you have serious difficulty seeing, even when wearing glasses? Answer Date of Assessment Author Status No 11/24/2018 3:46 AM CDT Activ e * Do you have serious difficulty walking or climbing stairs? Answer Date of Assessment Author Status No 11/24/2018 3:46 AM Wilfrid Arora se, RN Active * Do you have difficulty dressing or bathing? Answer Date of Assessment Author Status No 11/24/2018 3:46 AM Wilfrid Arora se, RN Active * Because of a physical, mental, or emotional condition, do you have difficulty doing errands alone such as visiting a doctor's office or shopping? Answer Date of Assessment Author Status No 11/24/2018 3:46 AM Wilfrid Arora se, RN Active documented as of this encounter Mental Status * Question Answer Entry Date Author Status Because of a physical, mental, or emotional condition, do you have serious difficulty concentrating, remembering, or making decisions? No 10/24/2020 1:53 AM Samara Buenrostro RN Active * Because of a physical, mental, or emotional condition, do you have serious difficulty concentrating, remembering, or making decisions? Answer Entry Date Author Status No 11/24/2018 3:46 AM Wilfrid Arora se, RN Active documented in this encounter Plan of Treatment Upcoming Encounters Date Type Department Care Team (Late st Contact Info) Description 10/22/2024 1:15 AM CDT Allied Health/Nurse Visit [place] [facility] [address] [place] [address] Jack Navarro MD [address] [place] [address] 03/26/2025 8:00 AM AUTOMOTIVE ARTIST Appointment [facility] Non Invasive Cardiology - [address] [address] Joselyn Frazier MD [address] [place] [address] 03/30/2025 9:15 AM AUTOMOTIVE ARTIST [facility] [address] [address] Joselyn Frazier MD [address] [place] [address] 04/06/2025 2:00 PM AUTOMOTIVE ARTIST [facility] [place] [facility] [address] [place] [phone] Jack Navarro MD [address] [place] [address] 04/06/2025 2:00 PM AUTOMOTIVE ARTIST Allied Health/Nurse Visit [place] [facility] [address] Jack Navarro MD [address] [place] [address] documented as of this encounter Visit Diagnoses Not on filedocumented in this encounter Additional Health Concerns Infection Onset Date Last Indicated Resolved Time COVID-19 Rule Out 10/23/2020 10/24/2020 10/24/2020 12:07 PM CDT documented as of this encounter Care Teams Autocad Electrical Designer Relationship Specialty Start Date End Date Hossein Hoffman MD [address] [place] [address] PCP - General INTERNAL MEDICINE 10/11/20 Joselyn Frazier MD [address] [place] [address] Consulting Physician CARDIOVASCULAR DISEASE 02/17/21 Jack Navarro MD [address] [place] [address] Consulting Physician CLINICAL CARDIAC ELECTROPHYSIOLOGY 11/21/22 documented as of this encounter
--- OUTSIDE RECORDS SUMMARY | 2024-07-20 07:34 | XMS_ITS | Encounter Summary ---
Author Organization [facility] Address [facility] [place] [address] Care Team Providers Care Supervisor Paper Products Name Role Phone Hossein Hoffman MD Primary Care Provider [phone] Joselyn Frazier MD Unavailable Jack Navarro MD Unavailable [phone] Encounter Details Date Type Department Care Team (Late st Contact Info) Description 04/09/2023 [email or web address] Message Enc [place] [facility] [address] [place] [address] Joselyn Frazier MD [address] [place] [address] Minoxidil Social History Tobacco Use Types Packs/Day Years [...] place to sleep or slept in a long term (including now)? No 01/06/2023 Comments No Sex and Gender Information Value Date Recorded Sex Assigned at Not on file Legal Sex Female 9:31 PM PSYCH TECH Gender Identity Female 05/24/2021 9:30 AM PSYCH TECH Sexual Orientation Straight 05/24/2021 9: 30 AM PSYCH TECH documented as of this encounter Functional Status * Are you deaf or do you have serious difficulty hearing Answer Date of Assessment Author Status No 01/05/2023 11:43 PM CDT Nataly Ferguson R N Active * Are you blind or do you have serious difficulty seeing, even when wearing glasses? Answer Date of Assessment Author Status No 01/05/2023 11:43 PM ARMAANT Nataly Ferguson R N Active * Do you have serious difficulty walking or climbing stairs? Answer Date of Assessment Author Status No 01/05/2023 11:43 PM CDT Nataly Ferguson R N Active * Do you have [...] 10/22/2024 1:15 AM CDT Allied Health/Nurse [facility] [place] [facility] [address] [place] [address] [phone] Jack Navarro MD [address] [place] [address] 03/26/2025 8:00 AM PSYCH TECH Appointment [facility] Non Invasive Cardiology - [place] [facility] [place] [address] [place] [address] Joselyn Frazier MD [address] [place] [address] 03/30/2025 9:15 AM PSYCH TECH [facility] [place] [facility] [address] [place] [address] Joselyn Frazier MD [address] [place] [address] 04/06/2025 2:00 PM PSYCH TECH [facility] [place] [facility] [address] [place] [address] Jack Navarro MD [address] [place] [address] 04/06/2025 2:00 PM PSYCH TECH Allied Health/Nurse Visit [facility] [address] [place] [address] aJck Navarro MD [address] [place] [address] documented as of this encounter Visit Diagnoses Not on filedocumented in this encounter Care Teams Supervisor Paper Products Relationship Specialty Start Date End Date Hossein Hoffman MD [address] [place] [address] PCP - General INTERNAL MEDICINE 10/11/20 Joselyn Frazier MD [address] [place] [address] Consulting Physician CARDIOVASCULAR DISEASE 02/17/21 Jack Navarro MD [address] [place] [address] Consulting Physician CLINICAL CARDIAC ELECTROPHYSIOLOGY 11/21/22 documented as of this encounter
== END 2024-07-20 07:25 | disposition home or self-care (01) ==
LOC: CHSIMG 07:25
PROVIDERS: PCP Internal Medicine; Visit Provider Internal Medicine
DX: Z12.31 Encounter for screening mammogram for malignant neoplasm of breast (principal); M25.551 Pain in right hip; Z78.0 Asymptomatic menopausal state; M16.11 Unilateral primary osteoarthritis, right hip
CPT/HCPCS: 73502; 77063; 77067; 77080

== ENCOUNTER 2024-08-10 09:12 | Outpatient (CLI) | payer OTHER, SELFPAY ==
--- NOTE | ~2024-08-10 | XR_ITS ---
EXAMINATION: XR lg joint inject/asp w image DATE: 08/10/2024 10:09 INDICATION: Right hip pain. TECHNIQUE: A time-out was performed to verify the patient's name, date of , and procedure to b e performed. The procedure including the risks, benefits, and alternatives was discussed with the pat ient. Risks discussed included bleeding and infection. The patient understood the risks and agreed to proceed. The skin overlying the right hip joint was prepped and draped in usual sterile fashion. A nesthetic was administered with 1% lidocaine subcutaneously. A 22 G needle was advanced under fluoro scopic guidance into the joint. Subsequently, injectate consisting of 5 mL 1% lidocaine, 1 mL 40 mg/ mL Kenalog, and 1 mL 4 mg/mL dexamethasone was instilled. The needle was removed and the entry site was cleaned and dressed. There were no immediate complications. Fluoroscopy exposure time was 0.0 mi nutes. The total number of images was 1. FINDINGS: Real-time fluoroscopy demonstrates the needle in the right hip joint. IMPRESSION: 1. Fluoroscopy guided right hip joint injection of local anesthetic and steroid. Reviewed, dictated and finalized at location A. IMPRESSION: 1. Fluoroscopy guided right hip joint injection of local anesthetic and steroid .
--- OUTSIDE RECORDS SUMMARY | 2024-08-10 10:01 | XMS_ITS | Encounter Summary ---
Author Organization [facility] Address [facility] [place] [address] Care Team Providers Care Bench Worker Hollow Handle Name Role Phone Hossein Hoffman MD Primary Care Provider [phone] Joselyn Frazier MD Unavailable Jack Navarro MD Unavailable [phone] Encounter Details Date Type Department Care Team (Late st Contact Info) Description 10/18/2021 [employer] Message [facility] [address] Joselyn Frazier MD [address] [place] [address] Dentist Social History Tobacco Use Types Packs/Day Years Used Date Smoking Tobacco: Former Cigarettes 0.5 20 1 985 - 2005 Smokeless Tobacco: Never Alcohol Use Standard Drinks/Week Comments Yes 0 (1 standard drink = 0.6 oz pur e alcohol) rarely Comments No Sex and Gender Information Value Date Recorded Sex Assigned at Not on file Legal Sex Female 9:31 PM CLERK OPERATOR Gender Identity Female 05/24/2021 9:30 AM CLERK OPERATOR Sexual Orientation Straight 05/24/2021 9: 30 AM CLERK OPERATOR documented as of this encounter Functional Status [...] CDT Allied Health/Nurse Visit Emelia johnson [address] [place] [address] Jack Navarro MD [address] [place] [address] 03/26/2025 8:00 AM CLERK OPERATOR Appointment [facility] [place] [address] [place] [address] Joselyn Frazier MD [address] [place] [address] 03/30/2025 9:15 AM CLERK OPERATOR Office Visit Emelia johnson [address] [place] [address] Joselyn Frazier MD [address] [place] [address] 04/06/2025 2:00 PM CLERK OPERATOR Office Visit Emelia johnson [address] [place] [address] Jack Navarro MD [address] [place], [place] [address] 04/06/2025 2:00 PM CLERK OPERATOR Allied Health/Nurse Visit [facility] [address] [place] [phone] Jack Navarro MD [address] [place] [address] documented as of this encounter Visit Diagnoses Not on filedocumented in this encounter Care Teams Bench Worker Hollow Handle Relationship Specialty Start Date End Date Hossein Hoffman MD [address] [place] [address] PCP - General INTERNAL MEDICINE 10/11/20 Joselyn Frazier MD [address] [place] [address] Consulting Physician CARDIOVASCULAR DISEASE 02/17/21 Jack Navarro MD [address] [place] [address] Consulting Physician CLINICAL CARDIAC ELECTROPHYSIOLOGY 11/21/22 documented as of this encounter
--- OUTSIDE RECORDS SUMMARY | 2024-08-10 10:01 | XMS_ITS | Referral Summary ---
Author Organization [facility] Address [address] [place] [address] Care Team Providers Care Credit Control Officer Name Role Phone Hossein Hoffman MD Primary Care Provider + [phone] Allergies No known active allergies Medications bisoprolol [...] (10/11/2021): Added automatically from request for surgery [id number] Family history of colon cancer in father 022 Overview (10/11/2021): Added automatically from request for surgery [id number] Encounter for screening colonoscopy 10/11/2021 Overview (10/11/2021): Added automatically from request for surgery [id number] Type 2 diabetes mellitus wit h hyperglycemia, [...] records. Assessment & Plan (06/12/2022 4:28 PM PASTRY COOK): Diagnosed around 2007 Started insulin in February [...] having low sugars. Patient to see a financial aid director. Assessment & Plan (01/29/2022 3:51 PM CDT): [...] having low sugars. Patient to see a financial aid director. Assessment & Plan (09/25/2021 2:56 PM CDT): [...] having low sugars. Patient to see a financial aid director. Assessment & Plan (06/12/2021 4:40 PM PASTRY COOK): Diagnosed around 2007 Started insulin in February [...] having low sugars. Patient to see a financial aid director. Assessment & Plan (02/07/2021 5:04 PM CDT): [...] basis. Assessment & Plan (05/17/2020 4:26 PM PASTRY COOK): Diagnosed around 2007 Started insulin in February [...] 01/20/2020 Neuropathy : mild. Eye : seeing supervisor pre wave. Plan: Continue diet plan, and work on [...] 07/02/19 Neuropathy : mild. Eye : seeing supervisor pre wave. Plan: Continue diet plan, and work on [...] 07/16/2018 Assessment & Plan (07/16/2018 4:04 AM PASTRY COOK): Patient with right lower lobe infiltrates. Presents with cough and diminished breath sounds on physical exam. Currently on Rocephin for UTI. Will add azithromycin for atypical bacterial coverage. Monitor CBC and BMP. Septic workup in progress. Will follow up with urine and blood cultures. Acute cystitis with hematuria 07/16/2018 Assessment & Plan (07/16/2018 9:52 PM PASTRY COOK): Septic workup is in progress. Will follow [...] PCP Assessment & Plan (06/12/2022 4:28 PM PASTRY COOK): Controlled- complicated with CKD - low salt diet - continue follow up with PCP Assessment & Plan (01/29/2022 3:52 PM CDT): Controlled- complicated with CKD - low salt diet - continue follow up with PCP Assessment & Plan (09/25/2021 2:57 PM CDT): Controlled- complicated with CKD - low salt diet - continue follow up with PCP Assessment & Plan (06/12/2021 4:41 PM PASTRY COOK): Controlled- complicated with CKD - low salt diet - continue follow up with PCP Assessment & Plan (05/17/2020 4:24 PM PASTRY COOK): Controlled- complicated with CKD - low salt [...] plan. Assessment & Plan (07/16/2018 4:00 AM PASTRY COOK): Stable. Will continue on lisinopril and metoprolol. [...] food. Assessment & Plan (07/16/2018 4:06 AM PASTRY COOK): Weight loss discussed and encouraged. Will request consult for dietary and educator senior clinical Acute kidney injury 07/16/2018 Assessment & Plan (07/16/2018 5:58 AM PASTRY COOK): Multifactorial due to dehydration secondary to hyperglycemic hyperosmolar state and concurrent UTI Continue with IV fluid Monitor kidney function with serial BMP Replete electrolytes as needed. Bleeding from the nose 07/16/2018 Assessment & Plan (07/16/2018 9:51 PM PASTRY COOK): Developed today, controlled with pressure. Lovenox stopped Hypokalemia 07/16/2018 Assessment & Plan (07/16/2018 9:52 PM PASTRY COOK): Replete Hypophosphatemia 07/16/2018 Assessment & Plan (07/16/2018 9:53 PM PASTRY COOK): Replete Resolved Problems Problem Noted Date Diagnosed Date Resolved Date Hyperosmolar non-ketotic sta te in patient with type 2 diabetes mellitus 07/16/2018 10/26/2019 Assessment & Plan (07/17/2018 5:43 PM PASTRY COOK): ABGs consistent with respiratory alkalosis. Will continue on insulin drip. Repeat BMP every 4 hours. Replete electrolytes as needed Will stop insulin drip when anion gap is closed. Continue IV fluids with normal saline, switch to D5 half-normal saline when blood sugars less than 250 Will start on subcutaneous Lantus 20 units and SSI when on my gap is closed. Will get educator senior clinical and nutritional consult Changed to Lantus and [...] on file Legal Sex Female 2:43 PM PASTRY COOK Gender Identity Female 01/31/2021 6:43 AM CDT [...] Female Attending MD: Remington Wagner M.D. Room: [facility] ENDOSCOPY ROOM 2 Note Status: Finalized [...] scope was passed under direct vision. TheColonoscope [id number] was introduced through the and advanced to the. The scope was passed under direct vision. The Pediatric Colonoscope [id number] was introduced through the anus and advanced [...] malignant neoplasm of colon CPT copyright 2020 [employer]. All rights reserved. The codes documented in this report are preliminary and upon pattern hand reviewmay be revised to meet current compliance requirements. Recognized by the [employer] for promoting quality in endoscopy Remington Wagner MD ENDOSCOPY PROCEDURES Final Re sult * (ABNORMAL) Albumin Creatinine Ratio, Urine (11/18/2021) [facility] SCRIBED Creatinine, Urine 33(A) 63 - 166 EXTERNAL LAB SCRIBED Microalbumin 0.9(A) 1.0 - 30.0 EXTERNAL LAB SCRIBED Microalb/Creat Ratio 27 EXTERNAL LAB Urine 11/18/2021 Historical Provider MD LAB URINE ORDERABLES Deanna l Result EXTERNAL LAB * (ABNORMAL) Lipid panel (11/18/2021) [facility] SCRIBED Cholesterol, Total 137 30 - 200 EXTERNAL LAB SCRIBED HDL 47(A) 0 - 40 EXTERNAL LAB SCRIBED LDL 70 0 - 129 EXTERNAL LAB SCRIBED Triglycerides 121 0 - 149 EXTERNAL LAB Blood 11/18/2021 [facility] Provider MD LAB BLOOD ORDERABLES Deanna l Result EXTERNAL LAB * Comprehensive metabolic panel (11/18/2021) Pathologist [facility] SCRIBED Sodium 138 - - - mmol/L [...] - EXTERNAL LAB SCRIBED eGFR in NonAfrican Guyanese 39 - - - EXTERNAL LAB Blood 11/18/2021 us Historical Provider LAB BLOOD ORDERABLES Deanna l Result EXTERNAL LAB * Diabetic Foot Exam (06/28/2021) us Historical Provider HEALTH MAINTENANCE Final Result from Last 3 Months or Most Recently Relevant to Health Maintenance Advance Directives For more information, please contact: [phone] * Full Code (Latest Code Status on File) Date Activated Date Inactivated Comments 12/21/2021 9:08 AM 12/21/2021 3:50 PM * Full Code Date Activated Date Inactivated Comments 12/21/2021 9:07 AM 12/21/2021 9:08 AM * Full Code Date Activated Date Inactivated Comments 07/15/2018 8:55 PM 07/19/2018 6:13 PM * Full Code Date Activated Date Inactivated Comments 07/15/2018 6:01 PM 07/15/2018 8:55 PM Care Teams Credit Control Officer Relationship Specialty Start Date End Date Hossein Hoffman MD [address] [place] [address] PCP - General Internal Medicine 03/12/19
--- OUTSIDE RECORDS SUMMARY | 2024-08-10 10:01 | XMS_ITS | Encounter Summary ---
Author Organization [facility] Address [address] [place] [address] Care Team Providers Care Snuff Blender Name Role Phone Hossein Hoffman MD Primary Care Provider [phone] Joselyn Frazier MD Unavailable Jack Navarro MD Unavailable [phone] Encounter Details Date Type Department Care Team (Late st Contact Info) Description 10/23/2020 Hospital Orders Only [facility] [address] [place] [address] Maxx Patel MD [address] [place] [address] Social History Tobacco Use Types Packs/Day Years Used Date Smoking Tobacco: Former Cigarettes 0.5 20 1 985 - 2005 Smokeless Tobacco: Never Alcohol Use Standard Drinks/Week Comments Yes 0 (1 standard drink = 0.6 oz pur e alcohol) rarely Comments No Sex and Gender Information Value Date Recorded Sex Assigned at Not on file Legal Sex Female 9:31 PM SEAMAN Gender Identity Female 05/24/2021 9:30 AM SEAMAN Sexual Orientation Straight 05/24/2021 9: 30 AM SEAMAN COVID-19 Exposure Response Date Recorded In the [...] 10/22/2024 1:15 AM CDT Allied Health/Nurse Visit [place] [facility] [address] [place] [address] Jack Navarro MD [address] [place] [address] 03/26/2025 8:00 AM SEAMAN Appointment [facility] Non Invasive Cardiology - [address] [address] Joselyn Frazier MD [address] [place] [address] 03/30/2025 9:15 AM SEAMAN [facility] [place] [facility] [address] [address] Joselyn Frazier MD [address] [place] [address] 04/06/2025 2:00 PM SEAMAN [facility] [place] [facility] [address] [place] [address] Jack Navarro MD [address] [place] [address] 04/06/2025 2:00 PM SEAMAN Allied Health/Nurse Visit [place] [facility]-[address] [address] Jack Navarro MD [address] [place] [address] documented as of this encounter Visit Diagnoses Not on filedocumented in this encounter Additional Health Concerns Infection Onset Date Last Indicated Resolved Time COVID-19 Rule Out 10/23/2020 10/24/2020 10/24/2020 12:07 PM CDT documented as of this encounter Care Teams Snuff Blender Relationship Specialty Start Date End Date Hossein Hoffman MD [address] [place] [address] PCP - General INTERNAL MEDICINE 10/11/20 Joselyn Frazier MD [address] [place] [address] Consulting Physician CARDIOVASCULAR DISEASE 02/17/21 Jack Navarro MD [address] [place] [address] Consulting Physician CLINICAL CARDIAC ELECTROPHYSIOLOGY 11/21/22 documented as of this encounter
--- OUTSIDE RECORDS SUMMARY | 2024-08-10 10:01 | XMS_ITS | Encounter Summary ---
Author Organization [facility] Address [address] [place] [address] Care Team Providers Care Psychological Operations Officer Name Role Phone Unavailable Primary Care Provider Unavailabl e Encounter Details Date Type Department Care Team (Late st Contact Info) Description 05/28/2000 Outpatient [place] [address] [address] Social History Tobacco Use Types Packs/Day Years Used Date Smoking Tobacco: Never Assessed Comments Unknown Sex and Gender Information Value Date Recorded Sex Assigned at Not on file Legal Sex Female 4:23 AM WASH TEST CHECKER Gender Identity Not on file Sexual Orientation Not on file documented as of this encounter Plan of Treatment Not on file documented as of this encounter Visit Diagnoses Not on filedocumented in this encounter
--- OUTSIDE RECORDS SUMMARY | 2024-08-10 10:01 | XMS_ITS | Encounter Summary ---
Author Organization [facility] Address [address] [place] [address] Care Team Providers Care Production Solderer Name Role Phone Unavailable Primary Care Provider Unavailabl e Encounter Details Date Type Department Care Team (Late st Contact Info) Description 04/26/2000 Outpatient [place] [address] [address] Social History Tobacco Use Types Packs/Day Years Used Date Smoking Tobacco: Never Assessed Comments Unknown Sex and Gender Information Value Date Recorded Sex Assigned at Not on file Legal Sex Female 4:23 AM MACHINE ERECTOR Gender Identity Not on file Sexual Orientation Not on file documented as of this encounter Plan of Treatment Not on file documented as of this encounter Visit Diagnoses Not on filedocumented in this encounter
--- OUTSIDE RECORDS SUMMARY | 2024-08-10 10:01 | XMS_ITS | Clinical Summary ---
Author Organization [facility] Address [address] [place] [address] Care Team Providers Care Founder & Ceo Name Role Phone Hossein Hoffman MD Primary Care Provider + [phone] Allergies No known active allergies Medications bisoprolol [...] (10/11/2021): Added automatically from request for surgery [id number] Family history of colon cancer in father 022 Overview (10/11/2021): Added automatically from request for surgery [id number] Encounter for screening colonoscopy 10/11/2021 Overview (10/11/2021): Added automatically from request for surgery [id number] Type 2 diabetes mellitus wit h hyperglycemia, [...] records. Assessment & Plan (06/12/2022 4:28 PM OUTER DIAMETER GRINDER): Diagnosed around 2007 Started insulin in February [...] having low sugars. Patient to see a pediatric hospitalist. Assessment & Plan (01/29/2022 3:51 PM CDT): [...] having low sugars. Patient to see a pediatric hospitalist. Assessment & Plan (09/25/2021 2:56 PM CDT): [...] having low sugars. Patient to see a pediatric hospitalist. Assessment & Plan (06/12/2021 4:40 PM OUTER DIAMETER GRINDER): Diagnosed around 2007 Started insulin in February [...] having low sugars. Patient to see a pediatric hospitalist. Assessment & Plan (02/07/2021 5:04 PM CDT): [...] basis. Assessment & Plan (05/17/2020 4:26 PM OUTER DIAMETER GRINDER): Diagnosed around 2007 Started insulin in February [...] 01/20/2020 Neuropathy : mild. Eye : seeing e learning specialist. Plan: Continue diet plan, and work on [...] 07/02/19 Neuropathy : mild. Eye : seeing e learning specialist. Plan: Continue diet plan, and work on [...] 07/16/2018 Assessment & Plan (07/16/2018 4:04 AM OUTER DIAMETER GRINDER): Patient with right lower lobe infiltrates. Presents with cough and diminished breath sounds on physical exam. Currently on Rocephin for UTI. Will add azithromycin for atypical bacterial coverage. Monitor CBC and BMP. Septic workup in progress. Will follow up with urine and blood cultures. Acute cystitis with hematuria 07/16/2018 Assessment & Plan (07/16/2018 9:52 PM OUTER DIAMETER GRINDER): Septic workup is in progress. Will follow [...] PCP Assessment & Plan (06/12/2022 4:28 PM OUTER DIAMETER GRINDER): Controlled- complicated with CKD - low salt diet - continue follow up with PCP Assessment & Plan (01/29/2022 3:52 PM CDT): Controlled- complicated with CKD - low salt diet - continue follow up with PCP Assessment & Plan (09/25/2021 2:57 PM CDT): Controlled- complicated with CKD - low salt diet - continue follow up with PCP Assessment & Plan (06/12/2021 4:41 PM OUTER DIAMETER GRINDER): Controlled- complicated with CKD - low salt diet - continue follow up with PCP Assessment & Plan (05/17/2020 4:24 PM OUTER DIAMETER GRINDER): Controlled- complicated with CKD - low salt [...] plan. Assessment & Plan (07/16/2018 4:00 AM OUTER DIAMETER GRINDER): Stable. Will continue on lisinopril and metoprolol. [...] food. Assessment & Plan (07/16/2018 4:06 AM OUTER DIAMETER GRINDER): Weight loss discussed and encouraged. Will request consult for dietary and fire prevention chief Acute kidney injury 07/16/2018 Assessment & Plan (07/16/2018 5:58 AM OUTER DIAMETER GRINDER): Multifactorial due to dehydration secondary to hyperglycemic hyperosmolar state and concurrent UTI Continue with IV fluid Monitor kidney function with serial BMP Replete electrolytes as needed. Bleeding from the nose 07/16/2018 Assessment & Plan (07/16/2018 9:51 PM OUTER DIAMETER GRINDER): Developed today, controlled with pressure. Lovenox stopped Hypokalemia 07/16/2018 Assessment & Plan (07/16/2018 9:52 PM OUTER DIAMETER GRINDER): Replete Hypophosphatemia 07/16/2018 Assessment & Plan (07/16/2018 9:53 PM OUTER DIAMETER GRINDER): Replete Resolved Problems Problem Noted Date Diagnosed Date Resolved Date Hyperosmolar non-ketotic sta te in patient with type 2 diabetes mellitus 07/16/2018 10/26/2019 Assessment & Plan (07/17/2018 5:43 PM OUTER DIAMETER GRINDER): ABGs consistent with respiratory alkalosis. Will continue on insulin drip. Repeat BMP every 4 hours. Replete electrolytes as needed Will stop insulin drip when anion gap is closed. Continue IV fluids with normal saline, switch to D5 half-normal saline when blood sugars less than 250 Will start on subcutaneous Lantus 20 units and SSI when on my gap is closed. Will get fire prevention chief and nutritional consult Changed to Lantus and [...] on file Legal Sex Female 2:43 PM OUTER DIAMETER GRINDER Gender Identity Female 01/31/2021 6:43 AM CDT [...] Wagner MD - 12/21/2021 8:56 AM CDT [facility] Patient Name: Aristides Sauceda Procedure Date: 12/21/2021 8:56 AM Date of : 1965 Admit Type: Outpatient Age: 56 Gender: Female Attending MD: Remington Wagner M.D. Room: [facility] ENDOSCOPY ROOM 2 Note Status: Finalized Patient [...] scope was passed under direct vision. TheColonoscope [id number] was introduced through the and advanced to the. The scope was passed under direct vision. The Pediatric Colonoscope [id number] was introduced through the anus and advanced [...] malignant neoplasm of colon CPT copyright 2020 [employer]. All rights reserved. The codes documented in this report are preliminary and upon employment coach reviewmay be revised to meet current compliance requirements. Recognized by the [employer] for promoting quality [...] - EXTERNAL LAB SCRIBED eGFR in NonAfrican Norwegian 39 - - - EXTERNAL LAB Blood 11/18/2021 us Historical Provider LAB BLOOD ORDERABLES Deanna l Result EXTERNAL LAB * Diabetic Foot Exam (06/28/2021) us Historical Provider HEALTH MAINTENANCE Final Result from Last 3 Months or Most Recently Relevant to Health Maintenance Advance Directives For more information, please contact: [phone] * Full Code (Latest Code Status on File) Date Activated Date Inactivated Comments 12/21/2021 9:08 AM 12/21/2021 3:50 PM * Full Code Date Activated Date Inactivated Comments 12/21/2021 9:07 AM 12/21/2021 9:08 AM * Full Code Date Activated Date Inactivated Comments 07/15/2018 8:55 PM 07/19/2018 6:13 PM * Full Code Date Activated Date Inactivated Comments 07/15/2018 6:01 PM 07/15/2018 8:55 PM Care Teams Founder & Ceo Relationship Specialty Start Date End Date Hossein Hoffman MD [address] [place] [address] PCP - General Internal Medicine 03/12/19
--- OUTSIDE RECORDS SUMMARY | 2024-08-10 10:01 | XMS_ITS | Encounter Summary ---
Author Organization [facility] Address [facility]9 [place] [address] Care Team Providers Care Child Watch Attendant Name Role Phone Hossein Hoffman MD Primary Care Provider [phone] Joselyn Frazier MD Unavailable Jack Navarro MD Unavailable [phone] Encounter Details Date Type Department Care Team ([facility] st Contact Info) Description 11/06/2021 [employer]ane L[employer] Message [facility] [address] Joselyn Frazier MD [address] [place] [address] colonoscopy Social History Tobacco Use Types Packs/Day Years Used Date Smoking Tobacco: Former Cigarettes 0.5 20 1 985 - 2005 Smokeless Tobacco: Never Alcohol Use Standard Drinks/Week Comments Yes 0 (1 standard drink = 0.6 oz pur e alcohol) rarely Comments No Sex and Gender Information Value Date Recorded Sex Assigned at Not on file Legal Sex Female 9:31 PM ASSEMBLER HYDRAULIC BACKHOE Gender Identity Female 05/24/2021 9:30 AM ASSEMBLER HYDRAULIC BACKHOE Sexual Orientation Straight 05/24/2021 9: 30 AM ASSEMBLER HYDRAULIC BACKHOE documented as of this encounter Functional Status [...] AM CDT Allied Health/Nurse Visit [facility] [address] [place] [address] Jack Navarro MD 9 [place] [address] 03/26/2025 8:00 AM ASSEMBLER HYDRAULIC BACKHOE Appointment [facility] Non Invasive Cardiology - [place] [facility] [place] [address] [place] [address] Joselyn Frazier MD [address]19 [place] [address] 03/30/2025 9:15 AM ASSEMBLER HYDRAULIC BACKHOE Office Visit [facility] [address] [place] [address] Joselyn Frazier MD [address]19 [place] [address] 04/06/2025 2:00 PM ASSEMBLER HYDRAULIC BACKHOE Office Visit [facility] [address] [place] [address] Jack Navarro MD [address] [place], [place] [address] 04/06/2025 2:00 PM ASSEMBLER HYDRAULIC BACKHOE Allied Health/Nurse Visit [facility] [address] [place] [address] Jack Navarro MD 619 [place] [address] documented as of this encounter Visit Diagnoses Not on filedocumented in this encounter Care Teams Child Watch Attendant Relationship Specialty Start Date End Date Hossein Hoffman MD 4 [place] [address] PCP - General INTERNAL MEDICINE 10/11/20 Joselyn Frazier MD 9 [place] [address] Consulting Physician CARDIOVASCULAR DISEASE 02/17/21 Jack Navarro MD [address] [place] [address] Consulting Physician CLINICAL CARDIAC ELECTROPHYSIOLOGY 11/21/22 documented as of this encounter
--- OUTSIDE RECORDS SUMMARY | 2024-08-10 10:01 | XMS_ITS | Encounter Summary ---
Author Organization [facility] Address [address] [place] [address] Care Team Providers Care Pheresis Nurse Name Role Phone Hossein Hoffman MD Primary Care Provider [phone] Joselyn Frazier MD Unavailable Jack Navarro MD Unavailable [phone] Encounter Details Date Type Department Care Team (Late st Contact Info) Description 04/24/2024 Syntasia Message Zoila [facility] BUSINESS OFFICE [facility] Provider ACTION REQUIRED Social History Tobacco [...] on file Legal Sex Female 9:31 PM SEED CUTTER Gender Identity Female 05/24/2021 9:30 AM SEED CUTTER Sexual Orientation Straight 05/24/2021 9: 30 AM SEED CUTTER documented as of this encounter Functional Status [...] 10/22/2024 1:15 AM CDT Allied Health/N[facility] [place] [facility] [address] [place] [address] Jack Navarro MD [address] [place] [address] 03/26/2025 8:00 AM SEED CUTTER Appointment [facility] Non Invasive Cardiology - [place] [facility] [place] [address] [place] [address] Joselyn Frazier MD 619 [place] [address] 03/30/2025 9:15 AM SEED CUTTER [facility] [place] [facility] [address] [address] Joselyn Frazier MD 619 [place] [address] 04/06/2025 2:00 PM SEED CUTTER [facility] [place] [facility] [address] [address] Jack Navarro MD [address] [place] [address] 04/06/2025 2:00 PM SEED CUTTER Allied Health/Nurse Visit [place] [facility] [address] [place] [address] Jack Navarro MD [address] [place], [place] [address] documented as of this encounter Visit Diagnoses Not on filedocumented in this encounter Care Teams Pheresis Nurse Relationship Specialty Start Date End Date Hossein Hoffman MD [address] [place] [phone] PCP - General INTERNAL MEDICINE 10/11/20 Joselyn Frazier MD [address] [place] [address] Consulting Physician CARDIOVASCULAR DISEASE 02/17/21 Jack Navarro MD [address] [place] [address] Consulting Physician CLINICAL CARDIAC ELECTROPHYSIOLOGY 11/21/22 documented as of this encounter
--- OUTSIDE RECORDS SUMMARY | 2024-08-10 10:01 | XMS_ITS | Encounter Summary ---
Author Organization [employer] Address [address] [place] [address] Care Team Providers Care Sous Chef Name Role Phone Unavailable Primary Care Provider Unavailabl e Encounter Details Date Type Department Care Team (Late st Contact Info) Description 09/27/2000 Outpatient [place] [address] [address] Social History Tobacco Use Types Packs/Day Years Used Date Smoking Tobacco: Never Assessed Comments Unknown Sex and Gender Information Value Date Recorded Sex Assigned at Not on file Legal Sex Female 4:23 AM INFORMATION ASSOC Gender Identity Not on file Sexual Orientation Not on file documented as of this encounter Plan of Treatment Not on file documented as of this encounter Visit Diagnoses Not on filedocumented in this encounter
--- OUTSIDE RECORDS SUMMARY | 2024-08-10 10:01 | XMS_ITS | Encounter Summary ---
Author Organization [facility] Address [address] [place] [address] Care Team Providers Care Lawyer Real Estate Name Role Phone Hossein Hoffman MD Primary Care Provider [phone] Joselyn Frazier MD Unavailable Jack Navarro MD Unavailable [phone] Encounter Details Date Type Department Care Team (Late st Contact Info) Description 11/03/2020 Abstract [place] [facility] [address] [place] [address] Maxx Patel MD [address] [place] [address] Social History Tobacco Use Types Packs/Day Years Used Date Smoking Tobacco: Former Cigarettes 0.5 20 1 985 - 2005 Smokeless Tobacco: Never Alcohol Use Standard Drinks/Week Comments Yes 0 (1 standard drink = 0.6 oz pur e alcohol) rarely Comments No Sex and Gender Information Value Date Recorded Sex Assigned at Not on file Legal Sex Female 9:31 PM MULTIMEDIA SERVICES MANAGER Gender Identity Female 05/24/2021 9:30 AM MULTIMEDIA SERVICES MANAGER Sexual Orientation Straight 05/24/2021 9: 30 AM MULTIMEDIA SERVICES MANAGER COVID-19 Exposure Response Date Recorded In the [...] 1:15 AM CDT Allied Health/N[facility] [place] [facility] [address] [place] [address] Jack Navarro MD [address] [place] [address] 03/26/2025 8:00 AM MULTIMEDIA SERVICES MANAGER Appointment [facility] Non Invasive Cardiology - [place] [facility] [address] [place] [address] Joselyn Frazier MD 9 [place] [address] 03/30/2025 9:15 AM MULTIMEDIA SERVICES MANAGER [facility] [place] [facility] [address] [place] [address] Joselyn Frazier MD [address] [place] [address] 04/06/2025 2:00 PM MULTIMEDIA SERVICES MANAGER Office Visit [facility] 619 [place] [address] Jack Navarro MD 619 [place], [place] [address] 04/06/2025 2:00 PM MULTIMEDIA SERVICES MANAGER Allied Health/Nurse Visit [facility] [address] [place] [address] Jack Navarro MD 619 [place], [place] [address] documented as of this encounter Procedures Procedure [...] MONOCYTES 8.9% EOSINOPHIL % (NASAL) 2.5% 11/02/2020 Hossein Hoffman MD LAB-OUTSIDE/ABSTRACTED Final Result * BNP (OUTSIDE LAB) (11/02/2020) Pathologist [facility] B TYPE NATRIURETIC PEPTIDE 5,725 11/02/2020 us [...] on filedocumented in this encounter Care Teams Lawyer Real Estate Relationship Specialty Start Date End Date Hossein Hoffman MD [address] [place] [address] PCP - General INTERNAL MEDICINE 10/11/20 Joselyn Frazier MD 9 [place], [place] [address] Consulting Physician CARDIOVASCULAR DISEASE 02/17/21 Jack Navarro MD 9 [place] [address] Consulting Physician CLINICAL CARDIAC ELECTROPHYSIOLOGY 11/21/22 documented as of this encounter
--- OUTSIDE RECORDS SUMMARY | 2024-08-10 10:01 | XMS_ITS | Encounter Summary ---
Author Organization [facility] Address [address] [place] [address] Care Team Providers Care Strategic Partnership Specialist Name Role Phone Hossein Hoffman MD Primary Care Provider [phone] Joselyn Frazier MD Unavailable Jack Navarro MD Unavailable [phone] Encounter Details Date Type Department Care Team (Late st Contact Info) Description 11/22/2020 Abstract [place] [facility] [address] [place] [address] Maxx Patel MD [address] [place] [address] Social History Tobacco Use Types Packs/Day Years Used Date Smoking Tobacco: Former Cigarettes 0.5 20 1 985 - 2005 Smokeless Tobacco: Never Alcohol Use Standard Drinks/Week Comments Yes 0 (1 standard drink = 0.6 oz pur e alcohol) rarely Comments No Sex and Gender Information Value Date Recorded Sex Assigned at Not on file Legal Sex Female 9:31 PM PARAMEDIC INSTRUCTOR Gender Identity Female 05/24/2021 9:30 AM PARAMEDIC INSTRUCTOR Sexual Orientation Straight 05/24/2021 9: 30 AM PARAMEDIC INSTRUCTOR COVID-19 Exposure Response Date Recorded In the [...] 10/22/2024 1:15 AM CDT Allied Health/Nurse [facility] [place] [facility] [address] [place] [address] Jack Navarro MD [address] [place] [address] 03/26/2025 8:00 AM PARAMEDIC INSTRUCTOR Appointment [facility] Non Invasive Cardiology - [place] [facility] [place] [address] [place] [address] Joselyn Frazier MD 9 [place] [address] 03/30/2025 9:15 AM PARAMEDIC INSTRUCTOR Office [facility] [place] [facility] [address] [place] [address] Joselyn Frazier MD 619 [place] [address] 04/06/2025 2:00 PM PARAMEDIC INSTRUCTOR Office Visit [facility] 6[address] [place] [address] Jack Navarro MD [address] [place], [place] [address] 04/06/2025 2:00 PM PARAMEDIC INSTRUCTOR Allied Health/Nurse Visit [facility] [address] [place] [address] Jack Navarro MD [address] [place], [place] [address] documented as of this encounter Procedures Procedure Name Priority Date/Time Associated Diagnosis Comments CBC (OUTSIDE LAB) Routine 11/09/2020 HEMOGLOBIN, GLYCOSYLATED Routine 11/09/2020 LIPID PANEL Routine 11/09/2020 HEPATIC FUNCTION PANEL Routine 11/09/2020 documented in this encounter Results * HEPATIC FUNCTION PANEL (11/09/2020) Pathologist [facility] ALBUMIN S/P/B 3.9 3.5 - 5.0 ALKALINE PHOSPHATASE S/P/B 88 ALT 41 AST 24 BILIRUBIN TOTAL S/P/B 0.6 TOTAL PROTEIN S/P/B 7.0 11/09/2020 Hossein Hoffman MD LABORATORY Final Result * CBC (OUTSIDE LAB) (11/09/2020) Pathologist [facility] WBC 8.8 HGB 10.7 HCT 32.2 PLT [...] on filedocumented in this encounter Care Teams Strategic Partnership Specialist Relationship Specialty Start Date End Date Hossein Hoffman MD [address] [place] [phone] PCP - General INTERNAL MEDICINE 10/11/20 Joselyn Frazier MD 9 [place] [address] Consulting Physician CARDIOVASCULAR DISEASE 02/17/21 Jack Navarro MD [address] [place] [address] Consulting Physician CLINICAL CARDIAC ELECTROPHYSIOLOGY 11/21/22 documented as of this encounter
--- OUTSIDE RECORDS SUMMARY | 2024-08-10 10:01 | XMS_ITS | Encounter Summary ---
Author Organization [facility] Address [facility]7 [place] [address] Care Team Providers Care Rig Mechanic Name Role Phone Hossein Hoffman MD Primary Care Provider [phone] Joselyn Frazier MD Unavailable Jack Navarro MD Unavailable [phone] Encounter Details Date Type Department Care Team (Latest Contact Info) Description 12/19/2021 [employer] Message [facility] [address] Joselyn Frazier MD [address] [place] [address] Blood Work results Social History [...] on file Legal Sex Female 9:31 PM OFFICE MAIL CLERK Gender Identity Female 05/24/2021 9:30 AM OFFICE MAIL CLERK Sexual Orientation Straight 05/24/2021 9: 30 AM OFFICE MAIL CLERK documented as of this encounter Functional Status [...] CDT Allied Health/Nurse Visit Emelia johnson [address] [place] [address] Jack Navarro MD 9 [place] [address] 03/26/2025 8:00 AM OFFICE MAIL CLERK Appointment [facility] Non Invasive Cardiology - [place] [facility] [place] [address] [place] [address] Joselyn Frazier MD 619 [place] [address] 03/30/2025 9:15 AM OFFICE MAIL CLERK Office Visit Emelia johnson [address] [place] [address] Joselyn Frazier MD [address] [place] [address] 04/06/2025 2:00 PM OFFICE MAIL CLERK Office Visit Emelia johnson [address] [place] [address] Jack Navarro MD 6[address] [place], [place] [address] 04/06/2025 2:00 PM OFFICE MAIL CLERK Allied Health/Nurse Visit [facility] [address] [place] [address] Jack Navarro MD 6[address] [place] [address] documented as of this encounter Visit Diagnoses Not on filedocumented in this encounter Care Teams Rig Mechanic Relationship Specialty Start Date End Date Hossein Hoffman MD 4 [place] [address] PCP - General INTERNAL MEDICINE 10/11/20 Joselyn Frazier MD 9 [place] [address] Consulting Physician CARDIOVASCULAR DISEASE 02/17/21 Jack Navarro MD [address] [place] [address] Consulting Physician CLINICAL CARDIAC ELECTROPHYSIOLOGY 11/21/22 documented as of this encounter
--- OUTSIDE RECORDS SUMMARY | 2024-08-10 10:01 | XMS_ITS | Encounter Summary ---
Author Organization [facility] Address [facility] [place] [address] Care Team Providers Care Software Quality Analyst Name Role Phone Hossein Hoffman MD Primary Care Provider [phone] Joselyn Frazier MD Unavailable Jack Navarro MD Unavailable [phone] Encounter Details Date Type Department Care Team (Late st Contact Info) Description 04/09/2023 [employer] Message Enc [place] [facility] 6[address] [place] [address] Joselyn Frazier MD 6[address] [place] [address] Minoxidil Social History Tobacco Use [...] place to sleep or slept in a long-term (including now)? No 01/06/2023 Comments No Sex and Gender Information Value Date Recorded Sex Assigned at Not on file Legal Sex Female 9:31 PM TREASURY MANAGER Gender Identity Female 05/24/2021 9:30 AM TREASURY MANAGER Sexual Orientation Straight 05/24/2021 9: 30 AM TREASURY MANAGER documented as of this encounter Functional Status [...] 10/22/2024 1:15 AM CDT Allied Health/Nurse [facility] [place] [facility] [address] [place] [phone] [phone] Jack Navarro MD [address] [place] [address] 03/26/2025 8:00 AM TREASURY MANAGER Appointment [facility] Non Invasive Cardiology - [place] [facility] [place] [address] [place] [address] Joselyn Frazier MD [address] [place] [address] 03/30/2025 9:15 AM TREASURY MANAGER Office [facility] [place] [facility] [address] [place] [address] Joselyn Frazier MD [address] [place] [address] 04/06/2025 2:00 PM TREASURY MANAGER Office [facility] [place] [facility] [address] [place] [address] Jack Navarro MD [address] [place] [address] 04/06/2025 2:00 PM TREASURY MANAGER Allied Health/Nurse Visit [facility] [place] [address] [place] [address] Jack Navarro MD [address] [place] [address] documented as of this encounter Visit Diagnoses Not on filedocumented in this encounter Care Teams Software Quality Analyst Relationship Specialty Start Date End Date Hosseni Hoffman MD [address] [place] [address] PCP - General INTERNAL MEDICINE 10/11/20 Joselyn Frazier MD [address] [place] [address] Consulting Physician CARDIOVASCULAR DISEASE 02/17/21 Jack Navarro MD [address] [place] [address] Consulting Physician CLINICAL CARDIAC ELECTROPHYSIOLOGY 11/21/22 documented as of this encounter
--- OUTSIDE RECORDS SUMMARY | 2024-08-10 10:01 | XMS_ITS | Encounter Summary ---
Author Organization [facility] Address [address] [place] [address] Care Team Providers Care Tacking Stitch Remover Name Role Phone Hossein Hoffman MD Primary Care Provider [phone] Joselyn Frazier MD Unavailable Jack Navarro MD Unavailable [phone] Encounter Details Date Type Department Care Team (Late st Contact Info) Description 03/28/2023 Hospital Follow-up Call [facility] [address] [place] [address] Mattie Bright, RN Social History Tobacco Use [...] place to sleep or slept in a skilled nursing (including now)? No 01/06/2023 Comments No Sex and Gender Information Value Date Recorded Sex Assigned at Not on file Legal Sex Female 9:31 PM ELECTRICAL MAINTENANCE WORKER Gender Identity Female 05/24/2021 9:30 AM ELECTRICAL MAINTENANCE WORKER Sexual Orientation Straight 05/24/2021 9: 30 AM ELECTRICAL MAINTENANCE WORKER documented as of this encounter Functional Status [...] 10/22/2024 1:15 AM CDT Allied Health/Nurse [facility] [place] [facility] [address] [address] Jack Navarro MD [address] [place] [address] 03/26/2025 8:00 AM ELECTRICAL MAINTENANCE WORKER Appointment [facility] Non Invasive Cardiology - [address] [address] Joselyn Frazier MD 9 [place] [address] 03/30/2025 9:15 AM ELECTRICAL MAINTENANCE WORKER [facility] [place] [facility] [address] [address] Joselyn Frazier MD [address] [place] [address] 04/06/2025 2:00 PM ELECTRICAL MAINTENANCE WORKER [facility] [place] [facility] [address] [address] Jack Navarro MD [address] [place] [address] 04/06/2025 2:00 PM ELECTRICAL MAINTENANCE WORKER Allied Health/Nurse Visit [facility] [facility] 6[address] [place] [address] Jack Navarro MD [address] [place] [address] documented as of this encounter Visit Diagnoses Not on filedocumented in this encounter Care Teams Tacking Stitch Remover Relationship Specialty Start Date End Date Hossein Hoffman MD [address] [place] [address] PCP - General INTERNAL MEDICINE 10/11/20 Joselyn Frazier MD [address] [place] [address] Consulting Physician CARDIOVASCULAR DISEASE 02/17/21 Jack Navarro MD [address] [place] [address] Consulting Physician CLINICAL CARDIAC ELECTROPHYSIOLOGY 11/21/22 documented as of this encounter
--- OUTSIDE RECORDS SUMMARY | 2024-08-10 10:01 | XMS_ITS | Encounter Summary ---
Author Organization [facility] Address [address] [place] [address] Care Team Providers Care Rabbit Dresser Name Role Phone Hossein Hoffman MD Primary Care Provider Joselyn Frazier MD Unavailable Jack Navarro MD Unavailable [phone] Encounter Details Date Type Department Care Team (Latest Contact Info) Description 11/18/2022 Ide[employer] Message [facility] [address] Cary Treadwell NP Defibrillator implant Social History [...] on file Legal Sex Female 9:31 PM WOOD SCIENCE PROFESSOR Gender Identity Female 05/24/2021 9:30 AM WOOD SCIENCE PROFESSOR Sexual Orientation Straight 05/24/2021 9: 30 AM WOOD SCIENCE PROFESSOR documented as of this encounter Functional Status [...] 10/22/2024 1:15 AM CDT Allied Health/Nurse Visit [place] [facility] [address] [place] [phone] Jack Navarro MD [address] [place] [address] 03/26/2025 8:00 AM WOOD SCIENCE PROFESSOR Appointment [facility] Non Invasive Cardiology - [place] [facility] [place] [address] [place] [address] Joselyn Frazier MD [address] [place] [address] 03/30/2025 9:15 AM WOOD SCIENCE PROFESSOR [facility] [place] [facility] [address] [place] [address] Joselyn Frazier MD [address] [place] [address] 04/06/2025 2:00 PM WOOD SCIENCE PROFESSOR Office Visit [place] [facility] [address] [place] [address] Jack Navarro MD [address] [place] [address] 04/06/2025 2:00 PM WOOD SCIENCE PROFESSOR Allied Health/Nurse Visit [facility] [address] [place] [address] Jack Navarro MD [address] [place], [place] [address] documented as of this encounter Visit Diagnoses Not on filedocumented in this encounter Care Teams Rabbit Dresser Relationship Specialty Start Date End Date Hossein Hoffman MD 4 [place] [phone] PCP - General INTERNAL MEDICINE 10/11/20 Joselyn Frazier MD 9 [place] [address] Consulting Physician CARDIOVASCULAR DISEASE 02/17/21 Jack Navarro MD [address] [place] [address] Consulting Physician CLINICAL CARDIAC ELECTROPHYSIOLOGY 11/21/22 documented as of this encounter
--- OUTSIDE RECORDS SUMMARY | 2024-08-10 10:01 | XMS_ITS | Clinical Summary ---
Author Organization [employer] Address [address] Changn: Epic Prelude ADT JUAN PABLO GARCIA [address] Care Team Providers Care Product/Device Technologist Name Role Phone Unavailable Primary Care Provider Unavailabl e Social History Tobacco Use Types Packs/Day Years Used Date Smoking Tobacco: Never Assessed Comments Unknown Sex and Gender Information Value Date Recorded Sex Assigned at Not on file Legal Sex Female 4:23 AM LAPPING MACHINE OPERATOR Gender Identity Not on file Sexual Orientation Not on file Plan of Treatment Health Maintenance Due Date Last Done Comments DTAP/TDAP/TD VACCINES (1 - Tdap) 02/13/1983 PAP SMEAR 02/13/1985 CERVICAL CANCER SCREENING 02/13/1994 HPV/Cotest (30-65) 02/13/1994 PAP SMEAR 02/13/1994 BREAST CANCER SCREENING 2004 COLORECTAL SCREENING [...]
--- OUTSIDE RECORDS SUMMARY | 2024-08-10 10:01 | XMS_ITS | Clinical Summary ---
Author Organization [facility] Address [address] [place] [address] Care Team Providers Care Survey Cad Technician Name Role Phone Hossein Hoffman MD Primary Care Provider [phone] Joselyn Frazier MD Unavailable Jack Navarro MD Unavailable [phone] Allergies No known active allergies Medications Glucose [...] the skin once a week. 3 Active diphenhydrAMINE -APAP (TYLENOL PM) 25-500 MG Tab tablet Take 2 tablets by mouth nightly at bedtime. Active bisoprolol (ZEBETA) 10 MG tablet Take 1 tablet (10 mg total) by mouth 2 (two) times daily. Active multi vitamin/mineral s (THERA-M ENHANCED) tablet Take 1 tablet by [...] MOUTH DAILY 90 tablet 3 4 Active sacubitril-vals robert (ENTRESTO) 24-26 MG tablet Take 1 tablet by mouth 2 (two) times daily. 180 tablet 3 5 Active Active Problems Problem Noted Date Diagnosed Date Presence of cardioverter defibrillator 4 Elevated troponin 01/05/2023 Chronic systolic (congestive ) heart failure ([facility]) 11/03/2020 Coronary artery disease invo lving shawnee coronary artery of shawnee heart without angina pectoris 11/03/2020 Ischemic cardiomyopathy 11/03/2020 Dyslipidemia 11/03/2020 Stage 3 chronic kidney disease 10/26/2020 Other hyperlipidemia 10/23/2020 Type 2 diabetes mellitus wit h circulatory disorder, with long-term current use of insulin ([facility]) 10/23/2020 ST elevation myocardial infa rction involving left anterior descending (LAD) coronary artery ([facility]) 10/23/2020 STEMI (ST elevation myocardi al infarction) ([facility]) 10/23/2020 Pancreatitis ([facility]) 11/24/2018 Acute cystitis with hematuria 07/16/2018 [...] encouraged. Will request consult for dietary and para educator Essential (primary) hypertension 07/16/2018 Overview (11/24/2018): Last Assessment & Plan: Stable. Will continue on lisinopril and metoprolol. Hyperosmolar non-ketotic sta te in patient with type 2 diabetes mellitus ([facility]) 07/16/2018 Overview (11/24/2018): Last Assessment & Plan: [...] on my gap is closed. Will get para educator and nutritional consult Changed to Lantus [...] involving left anterior descending (LAD) coronary artery ([facility]) 10/23/2020 05/23/2021 Encounters Date Type Department Care Team Description 07/08/2024 1:15 AM CABLE REPAIRER Allied Health/Nurse Visit [facility] [address] [place] [address] Jack Navarro MD 07/02/2024 Telephone [facility] [address] [place] [address] Joselyn Frazier MD Refill Request from Last 3 Months Family History Medical [...] place to sleep or slept in a snf (including now)? No 01/06/2023 Comments No Sex and Gender Information Value Date Recorded Sex Assigned at Not on file Legal Sex Female 9:31 PM CABLE REPAIRER Gender Identity Female 05/24/2021 9:30 AM CABLE REPAIRER Sexual Orientation Straight 05/24/2021 9: 30 AM CABLE REPAIRER Last Filed Vital Signs Vital Sign Reading Time Taken Comments Blood Pressure 138/84 03/26/2024 9:19 AM CABLE REPAIRER Pulse 72 03/26/2024 9:19 AM CABLE REPAIRER Temperature 36.6 C (97.9 F) 01/05/2023 11:39 PM CDT Respiratory Rate 20 03/26/2024 9:19 AM CABLE REPAIRER Oxygen Saturation 96% 03/26/2024 9:19 AM CABLE REPAIRER Inhaled Oxygen Concentration - - Weight 122.4 kg (269 lb 12.8 oz) 03/26/2024 9:19 AM CABLE REPAIRER Height 172.7 cm (5' 8 ) 03/26/2024 9:19 AM CABLE REPAIRER Body Mass Index 41.02 03/26/2024 9:19 AM CABLE REPAIRER Plan of Treatment Upcoming Encounters Date Type Department Care Team (Late st Contact Info) Description 10/22/2024 1:15 AM CDT Allied Health/Nurse Visit [facility] [address] [place] [address] Jack Navarro MD [address] [place] [address] 03/26/2025 8:00 AM CABLE REPAIRER Appointment [facility] Non Invasive [facility]iology - [facility] [address] [place] [address] Joselyn Frazier MD [address] [place] [address] 03/30/2025 9:15 AM CABLE REPAIRER Office Visit [facility] [address] [place] [address] Joselyn Frazier MD [address] [place] [address] 04/06/2025 2:00 PM CABLE REPAIRER [facility] [address] [place] [phone] Jack Navarro MD [address] [place] [address] 04/06/2025 2:00 PM CABLE REPAIRER Allied Health/Nurse [facility] [address] [place] [address] Jack Navarro MD [address] [place] [address] Health Maintenance Due Date Last Done Comments [...] this topic Medical Devices Implanted Type Area Rocket Test Fire Worker Device Identifier Shelf Expiration Date Model / Serial / Lot Jennifer Schumacher-11/20/2022 Implanted:Qty : 1 on 11/20/2022 by Jack Navarro MD ICD [employer] 09/09/2024 [id number] / [id number] / Description:DX: CMP Cheng Ra-11/20/2022 Implanted:Qty : 1 on 11/20/2022 by Jack Navarro MD Lead Implant [employer] 10/10/2025 [id number] / [id number] / Cheng Rv-11/20/2022 Implanted:Qty : 1 on 11/20/2022 by Jack Navarro MD Lead Implant [employer] 09/09/2025 [id number] / [id number] / Cv Resolute [place] Deuce-Lad-2020 Implanted: by Maxx Hall MD (Quantity not on file) Stent Coronary LAD [employer] CORON[employer] HE[employer] - DIV MEDT 02/11/2022 [id number] / / [id number] Procedures Procedure Name Priority Date/Time Associated Diagnosis Comments LIPID PANEL Routine 01/06/2023 5:29 AM CDT HEMOGLOBIN, GLYCOSYLATED Routine 11/09/2020 HEPATITIS C ANTIBODY TIMED 10/24/2020 9:18 AM CDT from Last 3 Months or Most Recently Relevant to Health Maintenance Results * (ABNORMAL) LIPID PANEL (01/06/2023 5:29 AM CDT) CHOLESTEROL 109 MG/DL 02/11/2023 8:49 AM CDT [facility] Comment:DESIRABLE: <200 TRIGLYCERIDES 95 MG/DL 02/11/2023 8:49 AM CDT [facility] Comment:<150 NORMAL HDL 44(L) >49 MG/DL 02/11/2023 8:49 AM CDT [facility] LDL (CALCULATED) 46 MG/DL 02/12/20 8:49 AM CDT [facility] Comment:<100 OPTIMAL VLDL CALCULATION 19 MG/DL 02/12/20 8:49 AM CDT [facility] Comment:REFERENCE RANGE NOT ESTABLISHED CHOL/HDL RATIO 2.5 02/11/2023 8:49 AM CDT [facility] Comment:REFERENCE RANGE NOT ESTABLISHED LDL/HDL 1.0 02/11/2023 8:49 AM CDT [facility] Comment:REFERENCE RANGE NOT ESTABLISHED NON HDL CHOLESTEROL 65 MG/DL 02/11/2023 8:49 AM CDT [facility] Comment:REFERENCE RANGE NOT ESTABLISHED 01/06/2023 5:29 AM CDT Yosi Coley III, MD LABORATORY Final R esult [facility] [address] [place] [address], [id number] * HEMOGLOBIN, GLYCOSYLATED (11/09/2020) HGB A1C 6.6 % 11/09/2020 Doc [facility] LABORATORY Final Result * HEPATITIS C ANTIBODY (10/24/2020 9:18 AM CDT) HEPATITIS C AB NON-REACTI VE NON-REACT SINDY 10/24/2020 12:42 PM CDT [facility] Comment: ANTIBODIES TO HCV NOT DETECTED. DOES NOT EXCLUDE THE POSSIBILITY OF EXPOSURE TO HCV. 10/24/2020 9:18 AM CDT Raf Forbes MD LABORATORY Final Result Performing Organization Address [facility] Co de Phone Number [facility] [address] [place] [address], [id number] from Last 3 Months or Most Recently Relevant to Health Maintenance Insurance [employer] Advance Directives * Full Code (Latest Code Status on File) Date Activated Date Inactivated Comments 01/05/2023 11:42 PM 03/27/2023 11:02 AM * Full Code Date Activated Date Inactivated Comments 10/23/2020 11:33 PM 10/26/2020 6:42 PM * Full Code Date Activated Date Inactivated Comments 11/24/2018 3:19 AM 11/27/2018 8:33 PM Care Teams Survey Cad Technician Relationship Specialty Start Date End Date Hossein Hoffman MD [address] [place] [phone] PCP - General INTERNAL MEDICINE 10/11/20 Joselyn Frazier MD [address] [place] [address] Consulting Physician CARDIOVASCULAR DISEASE 02/17/21 Jack Navarro MD [address] [place] [address] Consulting Physician CLINICAL CARDIAC ELECTROPHYSIOLOGY 11/21/22
--- OUTSIDE RECORDS SUMMARY | 2024-08-10 10:01 | XMS_ITS | Encounter Summary ---
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 Gender Identity Female 05/24/2021 9:30 AM WIRE PRODUCTS INSPECTOR Sexual Orientation Straight 05/24/2021 9: 30 AM WIRE PRODUCTS INSPECTOR documented as of this encounter Functional Status [...] 10/22/2024 1:15 AM CDT Allied Health/Nurse Visit [facility] [address] [place] [phone] Jack Navarro MD [address] [place] [address] 03/26/2025 8:00 AM WIRE PRODUCTS INSPECTOR Appointment [facility] Non Invasive Cardiology - [facility] [address] [place] [address] Joselyn Frazier MD [address] [place] [address] 03/30/2025 9:15 AM WIRE PRODUCTS INSPECTOR [facility] [address] [place] [address] Joselyn Frazier MD [address] [place] [address] 04/06/2025 2:00 PM WIRE PRODUCTS INSPECTOR Office Visit [facility] [address] [place] [phone] Jack Navarro MD [address] [place] [address] 04/06/2025 2:00 PM WIRE PRODUCTS INSPECTOR Allied Health/Nurse Visit [facility] [address] [place] [phone] Jack Navarro MD [address] [place], [place] [phone] documented as of this encounter Visit Diagnoses Not on filedocumented in this encounter Care Teams Graffiti Cleaner Relationship Specialty Start Date End Date Hossein Hoffman MD [address] [place] [phone] PCP - General INTERNAL MEDICINE 10/11/20 Joselyn Frazier MD [address] [place] [address] Consulting Physician CARDIOVASCULAR DISEASE 02/17/21 Jack Navarro MD [address] [place] [address] Consulting Physician CLINICAL CARDIAC ELECTROPHYSIOLOGY 11/21/22 documented as of this encounter
--- OUTSIDE RECORDS SUMMARY | 2024-08-10 10:01 | XMS_ITS | Encounter Summary ---
Author Organization [facility] Address 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
== END 2024-08-10 09:13 | disposition home or self-care (01) ==
PROVIDERS: PCP Internal Medicine; Visit Provider Internal Medicine
DX: M25.551 Pain in right hip (principal)
CPT/HCPCS: 20610; 77002; J1100; J2003; J3301

== ENCOUNTER 2024-11-04 19:05 | Emergency (ER) | payer OTHER, SELFPAY ==
[2024-11-04 19:08] VITALS: BP 179/111; PULSE 84; RESP 18; TEMP 36.1; O2SAT 97
--- NOTE | 2024-11-04 19:10 | ED.WOUNDLAC ---
HPI - Wound/Laceration General Chief Complaint: Wound/Laceration Stated Complaint: lac Time Seen by Provider: 11/04/24 19:10 Source: patient Mode of arrival: ambulatory Limitations: no limitations History of Present Illness HPI narrative: patient is a 59-year-old female with a right thumb laceration from a kitchen utensil. She did this prior to arrival. She has bleeding from the area secondary to blood thinners. Tetanus up-to-date. Onset (ago): hour(s) ( One) Location: other ( right thumb) Place: home Patient tetanus UTD: Yes Context: accidental Associated symptoms: none Treatments prior to arrival: bandage Related Data Allergies Allergy/AdvReac Type Severity Reaction Status Date / Time No Known Allergies Allergy Verified 11/04/24 19:22 Review of Systems Review of Systems: All systems reviewed & are unremarkable except as noted in HPI and below Constitutional: Constitutional: Reports no additional constitutional complaints Eyes: Eyes: Reports no additional eye complaints ENT: Reports system reviewed and no additional complaints, except as documented Cardiovascular: Cardiovascular: Reports no additional cardiovascular complaints Respiratory: Respiratory: Reports no additional respiratory complaints Gastrointestinal: Gastrointestinal: Reports no additional gastrointestinal complaints Genitourinary: Genitourinary: Reports no additional female genitourinary complaints Musculoskeletal: Musculoskeletal: Reports no additional musculoskeletal complaints Integumentary/Breasts: Skin/Breast: Reports system reviewed and no additional complaints, except as docu Neurologic: Reports system reviewed and no additional complaints, except as documented Psychiatric: Psychiatric: Reports no additional psychiatric complaints Endocrine: Endocrine: Reports no additional endocrine complaints Hematologic/Lymphatic: Hematologic/Lymphatic: Reports no additional hematologic/lymphatic complaints Allergic/Immunologic: Allergic/Immunologic: Reports no additional allergic/immunologic complaints Exam Const: General: healthy appearing Nutritional Appearance: well nourished Orientation/consciousness: patient oriented x3 Limitations: no limitations HENMT: Head: normal to inspection Ears: external ears normal Face/Nose/Sinus: Normal external nose present Eyes: Conjunctivae: conjunctivae normal Pupils: Equal, round and reactive pupils present EOM: EOMs intact bilaterally Neck: Neck: normal visual inspection Chest: Chest palpation & inspection: normal inspection of the chest Resp: Effort & Inspection: normal respiratory effort and not labored Auscultation: clear to auscultation bilaterally and no crackles Cardio: Rate: regular rate Rhythm: regular rhythm Heart sounds: no murmurs Skin: General skin exam: normal color Rashes: no rashes Wounds: wound noted and wounds noted ( right thumb has a flap curve 1.2 cm with slight bleeding) Neuro: General: patient oriented x3, moves all extremities, no meningeal signs, no focal motor deficits and CN's II-XI intact bilaterally Extrem: General: normal to inspection Other: see skin exam Psych: Mental Status: mental status grossly normal Affect: normal affect Attitude: cooperative Course Vital Signs Vital signs: Vital Signs Temperature 36.1 C L 11/04/24 19:08 Pulse Rate 84 11/04/24 19:08 Respiratory Rate 18 11/04/24 19:08 Blood Pressure 179/111 H 11/04/24 19:08 Pulse Oximetry 97 11/04/24 19:08 Oxygen Delivery Room Air 11/04/24 19:08 Temperature 36.1 C L 11/04/24 19:08 Pulse Rate 84 11/04/24 19:08 Respiratory Rate 18 11/04/24 19:08 Blood Pressure 179/111 H 11/04/24 19:08 Pulse Oximetry 97 11/04/24 19:08 Oxygen Delivery Room Air 11/04/24 19:08 Procedures Other Procedure Procedure 1: Other Procedure: right thumb curved laceration 1.2 cm: Dermabond placed, Steri-Strips placed, procedure tolerated well and no complications MDM - Wound/Laceration MDM Narrative Medical decision making narrative: patient is a 59-year-old female with a right thumb laceration with kitchen utensils. We will Dermabond and Steri-Strips. Tetanus shot up-to-date. Discharge Plan Discharge Clinical Impression: Laceration of thumb Qualifiers: Encounter type: initial encounter Damage to nail status: without damage Foreign body presence: without foreign body Laterality: right Qualified Code(s): S61.011A - Laceration without foreign body of right thumb without damage to nail, initial encounter Patient Disposition: Home Condition: Stable Instructions: Laceration (ED) Patient Language: Arabic Follow-up/Referrals: Hossein Hoffman MD [Primary Care Provider] - Time of Disposition: 20:11
--- NOTE | 2024-11-04 19:13 | PC.NURSE ---
finger tourniquet applied to right thumb per ERP verbal order.
[2024-11-04 20:17] VITALS: BP 159/98; PULSE 88; RESP 18; O2SAT 97
== END 2024-11-04 20:17 | disposition home or self-care (01) ==
PROVIDERS: Emergency Provider Emergency Medicine; PCP Internal Medicine
DX: S61.011A Laceration without foreign body of right thumb without damage to nail, initial encounter (principal); W45.8XXA Other foreign body or object entering through skin, initial encounter
CPT/HCPCS: 12001; 99282

== ENCOUNTER 2024-11-06 13:14 | Emergency (ER) | payer OTHER, SELFPAY ==
[2024-11-06 13:14] VITALS: BP 156/102; PULSE 80; RESP 20; TEMP 36; O2SAT 97
--- NOTE | 2024-11-06 13:21 | ED.WOUNDLAC ---
HPI - Wound/Laceration General Chief Complaint: Wound/Laceration Stated Complaint: wound check Source: patient Mode of arrival: ambulatory Limitations: no limitations History of Present Illness HPI narrative: Patient is a 59-year-old female with a right thumb laceration repaired here 2 days ago with adhesive. She was also given Steri-Strips placed on top. She cut her thumb on a kitchen utensil. Patient came back to the ER at this time for dressing change and to let us know the adhesive has fallen off at this time. No bleeding or pain at this time. The skin flap is still in proper position. Onset (ago): day(s) ( Two) Location: other ( right thumb) Place: home Patient tetanus UTD: Yes Context: accidental Associated symptoms: none Treatments prior to arrival: bandage Related Data Allergies Allergy/AdvReac Type Severity Reaction Status Date / Time No Known Allergies Allergy Verified 11/04/24 19:22 Review of Systems Review of Systems: All systems reviewed & are unremarkable except as noted in HPI and below Constitutional: Constitutional: Reports no additional constitutional complaints Eyes: Eyes: Reports no additional eye complaints ENT: Reports system reviewed and no additional complaints, except as documented Cardiovascular: Cardiovascular: Reports no additional cardiovascular complaints Respiratory: Respiratory: Reports no additional respiratory complaints Gastrointestinal: Gastrointestinal: Reports no additional gastrointestinal complaints Genitourinary: Genitourinary: Reports no additional female genitourinary complaints Musculoskeletal: Musculoskeletal: Reports no additional musculoskeletal complaints Integumentary/Breasts: Skin/Breast: Reports system reviewed and no additional complaints, except as docu Neurologic: Reports system reviewed and no additional complaints, except as documented Psychiatric: Psychiatric: Reports no additional psychiatric complaints Endocrine: Endocrine: Reports no additional endocrine complaints Hematologic/Lymphatic: Hematologic/Lymphatic: Reports no additional hematologic/lymphatic complaints Allergic/Immunologic: Allergic/Immunologic: Reports no additional allergic/immunologic complaints Exam Const: General: healthy appearing Nutritional Appearance: well nourished Orientation/consciousness: patient oriented x3 Limitations: no limitations Other: patient is acutely upset about the loss of the adhesive and Steri-Strips at this time and would like a new dressing and set up at this time. HENMT: Head: normal to inspection Ears: external ears normal Face/Nose/Sinus: Normal external nose present Eyes: Conjunctivae: conjunctivae normal Pupils: Equal, round and reactive pupils present EOM: EOMs intact bilaterally Neck: Neck: normal visual inspection Skin: General skin exam: normal color Rashes: no rashes Wounds: wound noted Other: Right thumb 1.2 cm curved laceration is in place proper position of the skin flap without signs of infection; the adhesive and Steri-Strips are off at this time Neuro: General: patient oriented x3 Cranial nerves: Yes Nystagmus not present Speech: normal speech Gait exam (Neuro): Normal gait present Extrem: General: normal to inspection Psych: Mental Status: mental status grossly normal Affect: Anxious affect present Attitude: cooperative Course Vital Signs Vital signs: Vital Signs Temperature 36.0 C L 11/06/24 13:14 Pulse Rate 80 11/06/24 13:14 Respiratory Rate 20 11/06/24 13:14 Blood Pressure 156/102 H 11/06/24 13:14 Pulse Oximetry 97 11/06/24 13:14 Oxygen Delivery Room Air 11/06/24 13:14 Temperature 36.0 C L 11/06/24 13:14 Pulse Rate 80 11/06/24 13:14 Respiratory Rate 20 11/06/24 13:14 Blood Pressure 156/102 H 11/06/24 13:14 Pulse Oximetry 97 11/06/24 13:14 Oxygen Delivery Room Air 11/06/24 13:14 MDM - Wound/Laceration MDM Narrative Medical decision making narrative: patient is a 59-year-old female with a right thumb laceration and patient here for concerns of re-application of a dressing and review the wound. We will reapply Dermabond at this time as well as a more firm dressing. Discharge Plan Discharge Clinical Impression: Laceration of thumb Qualifiers: Encounter type: initial encounter Damage to nail status: without damage Foreign body presence: without foreign body Laterality: right Qualified Code(s): S61.011A - Laceration without foreign body of right thumb without damage to nail, initial encounter Patient Disposition: Home Condition: Stable Instructions: Skin Adhesive Care (ED) Patient Language: Albanian Follow-up/Referrals: Hossein Hoffman MD [Primary Care Provider] - Time of Disposition: 13:43
== END 2024-11-06 13:51 | disposition home or self-care (01) ==
PROVIDERS: Emergency Provider Emergency Medicine; PCP Internal Medicine
DX: S61.011A Laceration without foreign body of right thumb without damage to nail, initial encounter (principal); W27.4XXA Contact with kitchen utensil, initial encounter
CPT/HCPCS: 12001; 99282